=== PATIENT | female | born 1960 | race Caucasian/White ===

== ENCOUNTER 2017-01-31 14:34 | Inpatient (IN) | payer OTHER ==
--- NOTE | 2017-01-31 15:44 | ED ---
General Adult HPI - General Chief complaint: Psychiatric Symptoms Stated complaint: Mental Health Time Seen by Provider: 01/31/17 15:19 Source: patient, RN notes reviewed Mode of arrival: ambulatory Limitations: no limitations - History of Present Illness Initial comments: Patient is a 56-year-old female who presents emergency room today with a chief complaint of needing psychiatric evaluation. She does admit to positive suicide earlier today. She states that she did have a rope which was going to hang herself. She states her walked in and saw throat. Patient was met that she's had thoughts of hurting herself once in the past. States she currently does not see a therapist or counselor at this time. States she stopped her medications 2 days ago has not taken them over the last 2 days. She denies any homicidal thoughts or plans. Denies any visual or auditory hallucinations. Denies any other complaints or associated symptoms. Patient denies any recent fever, chills, shortness of breath, chest pain, back pain, abdominal pain, nausea or vomiting, numbness or tingling, dysuria or hematuria, constipation or diarrhea, headaches or visual changes, or any other complaints. - Related Data Home Medications Medication Instructions Recorded Confirmed Aspirin EC [Ecotrin Low Dose] 81 mg PO DAILY 01/31/17 01/31/17 Ibuprofen [Motrin] 200 - 400 mg PO Q6HR PRN 01/31/17 01/31/17 Morphine Sulfate ER [Ms Contin 30 mg PO Q12H 01/31/17 01/31/17 30Mg] Temazepam 30 mg PO HS 01/31/17 01/31/17 amLODIPine [Norvasc] 10 mg PO HS 01/31/17 01/31/17 Allergies Allergy/AdvReac Type Severity Reaction Status Date / Time No Known Allergies Allergy Verified 01/31/17 15:54 Review of Systems ROS Statement: Those systems with pertinent positive or pertinent negative responses have been documented in the HPI. ROS Other: All systems not noted in ROS Statement are negative. Past Medical History Past Medical History: Hypertension History of Any Multi-Drug Resistant Organisms: None Reported Past Surgical History: Appendectomy, Hernia Repair Past Psychological History: Anxiety, Depression Smoking Status: Current some day smoker Past Alcohol Use History: Rare Past Drug Use History: None Reported General Exam - General Exam Comments Initial Comments: General: The patient is awake and alert, in no distress, and does not appear acutely ill. Eye: Pupils are equal, round and reactive to light, extra-ocular movements are intact. No nystagmus. There is normal conjunctiva bilaterally. No signs of icterus. Ears, nose, mouth and throat: There are moist mucous membranes and no oral lesions. Neck: The neck is supple, there is no tenderness or JVD. Cardiovascular: There is a regular rate and rhythm. No murmur, rub or gallop is appreciated. Respiratory: Lungs are clear to auscultation, respirations are non-labored, breath sounds are equal. No wheezes, stridor, rales, or rhonchi. Musculoskeletal: Normal ROM, no tenderness. Strength 5/5. Sensation intact. Pulses equal bilaterally 2+. Neurological: A&O x 3. CN II-XII intact, There are no obvious motor or sensory deficits. Coordination appears grossly intact. Speech is normal. Skin: Skin is warm and dry and no rashes or lesions are noted. Psychiatric: Cooperative, appropriate mood & affect, normal judgment. Limitations: no limitations Course Vital Signs 01/31/17 15:08 Temperature 99.3 F Pulse Rate 83 Respiratory 20 Rate Blood Pressure 137/84 O2 Sat by Pulse 99 Oximetry Medical Decision Making - Medical Decision Making The patient seen here in the emergency room by [facility] and the recommended admission. Patient will be admitted she's willing to sign herself in. - Lab Data Lab Results 01/31/17 Range/Units 16:46 Urine Opiates Screen Detected H (NotDetected) Ur Oxycodone Screen Not Detected (NotDetected) Urine Methadone Screen Not Detected (NotDetected) Ur Propoxyphene Screen Not Detected (NotDetected) Ur Barbiturates Screen Not Detected (NotDetected) U Tricyclic Antidepress Not Detected (NotDetected) Ur Phencyclidine Scrn Not Detected (NotDetected) Ur Amphetamines Screen Not Detected (NotDetected) U Methamphetamines Scrn Not Detected (NotDetected) U Benzodiazepines Scrn Detected H (NotDetected) Urine Cocaine Screen Not Detected (NotDetected) U Marijuana (THC) Screen Not Detected (NotDetected) Disposition Clinical Impression: Suicidal ideation Disposition: ADMITTED IP TO THIS HOSP Condition: Stable Time of Disposition: 17:34
[2017-01-31] MEDS ORDERED: MAG HYDROX/AL HYDROX/SIMETH 30 ML CUP PO PRN (17:24)
[2017-01-31] MEDS ORDERED: MAGNESIUM HYDROXIDE 2,400 MG/10 ML CUP PO PRN (17:24)
[2017-01-31] MEDS: amLODIPine 10 MG TAB PO SCH (20:15)
[2017-01-31] MEDS ORDERED: traZODone HCL 100 MG TAB PO STA (20:29)
[2017-02-01 09:09] LABS: Basophils # (A) 0.1 k/uL (0-0.2); Basophils % (A) 1 %; CH 32.8; Eosinophils # (A) 0.1 k/uL (0-0.7); Eosinophils % (A) 1 %; HCT 48.5 % (34.0-46.0); HDW 2.33; HGB 15.9 gm/dL (11.4-16.0); Luc % (Auto) 2; Lymphocytes # (A) 1.4 k/uL (1.0-4.8); Lymphocytes % (A) 23 %; MCH 32.7 pg (25.0-35.0); MCHC 32.8 g/dL (31.0-37.0); MCV 99.8 fL (80.0-100.0); Mean Platelet Volume 6.7; Monocytes # (A) 0.2 k/uL (0-1.0); Monocytes % (A) 3 %; Neutrophils # (A) 4.3 k/uL (1.3-7.7); Neutrophils % (A) 71 %; RBC 4.87 m/uL (3.80-5.40); RDW 13.4 % (11.5-15.5); WBC 6.1 k/uL (3.8-10.6); WBC (Perox) 5.83
[2017-02-01] MEDS: ASPIRIN 81 MG PO SCH (09:26)
[2017-02-01 09:46] VITALS: BMI 16.2
[2017-02-01 10:00] LABS: ALT 22 U/L (9-52); AST 24 U/L (14-36); Alkaline Phosphatase 84 U/L (38-126); Anion Gap 12 mmol/L; Blood Urea Nitrogen 21 mg/dL (7-17); Calcium 9.8 mg/dL (8.4-10.2); Carbon Dioxide 21 mmol/L (22-30); Chloride 107 mmol/L (98-107); Glucose 208 mg/dL (74-99); Non-African American GFR(MDRD) >60 (>60 ml/min/1.73 sqM); Sodium 140 mmol/L (137-145); Total Bilirubin 0.5 mg/dL (0.2-1.3); Total Protein 7.4 g/dL (6.3-8.2)
[2017-02-01] MEDS: NICOTINE 7MG/24HR PATCH TRANSDERM PRN (13:04)
[2017-02-01] MEDS: LORazepam 1 MG TAB PO PRN ×2 (13:37→19:45)
--- NOTE | 2017-02-01 16:57 | P.HPIM ---
History of Present Illness H&P Date: 02/01/17 Chief Complaint: Depression with suicidal ideation. This is a history of physical and a 56-year-old white female who is very well- known to my practice who had has had significant issue with chronic opioid dependence. For the last several years, she's been slowly weaning down her morphine dosing. However, she states that, after spending some time with her sister, she decided to just stop completely her medication for pain. Withdrawal she became very frustrated and has had significant problems with mental stress. Her , who is also patient, brought her into the mental health unit for evaluation. She is seen day 1 of her admission. She states significant nausea due to withdrawal. She would actually like to stop taking morphine and just treat her symptomatology. Ativan was supposedly given to the patient which was summarily vomited. Review of Systems Constitutional: Denies chills, Denies fever Eyes: denies blurred vision, denies pain Ears, nose, mouth and throat: Denies headache, Denies sore throat Respiratory: Denies cough Gastrointestinal: Denies abdominal pain, Denies diarrhea, Denies nausea, Denies vomiting Genitourinary: Denies dysuria, Denies hematuria Integumentary: Denies pruritus, Denies rash Neurological: Denies numbness, Denies weakness Psychiatric: Reports depression, Reports suicidal ideation Past Medical History Past Medical History: Hypertension, Osteoarthritis (OA) Additional Past Medical History / Comment(s): migraines, sciatica,grinds teeth at night, depression/anxiety History of Any Multi-Drug Resistant Organisms: None Reported Past Surgical History: Appendectomy, Hernia Repair, Tonsillectomy Additional Past Surgical History / Comment(s): benign tumor removed rt breast, pain clinic injections Past Anesthesia/Blood Transfusion Reactions: Motion Sickness Additional Past Anesthesia/Blood Transfusion Reaction / Comment(s): clausterphobia Past Psychological History: Anxiety, Depression Smoking Status: Current every day smoker Past Alcohol Use History: Occasional Additional Past Alcohol Use History / Comment(s): started smoking at age 17 currently smokes 3 cig per day Additional Drug Use History / Comment(s): pt stated in herteens/20's "i did anything i could get my hands on" pt wouldnt elaborate on exact drugs. - Past Family History Father Family Medical History: Cancer, Coronary Artery Disease (CAD), CVA/TIA, Hyperlipidemia, Hypertension, Prostate Disorder Additional Family Medical History / Comment(s): prostate cancer, quad bypass Mother Family Medical History: CVA/TIA, Hyperlipidemia, Hypertension Medications and Allergies Home Medications Medication Instructions Recorded Confirmed Type Aspirin EC [Ecotrin Low Dose] 81 mg PO DAILY 01/31/17 01/31/17 History Ibuprofen [Motrin] 200 - 400 mg PO Q6HR PRN 01/31/17 01/31/17 History Morphine Sulfate ER [Ms Contin 30 mg PO Q12H 01/31/17 01/31/17 History 30Mg] RX: Temazepam 30 mg PO HS 01/31/17 01/31/17 History amLODIPine [Norvasc] 10 mg PO HS 01/31/17 01/31/17 History Allergies Allergy/AdvReac Type Severity Reaction Status Date / Time No Known Allergies Allergy Verified 01/31/17 15:54 Physical Exam Vitals: Vital Signs Temp Pulse Pulse Resp BP BP Pulse Ox 02/01/17 09:48 81 16 142/83 02/01/17 06:44 98.7 F 73 16 143/77 01/31/17 20:16 92 140/94 01/31/17 18:21 98.0 F 78 15 138/81 99 01/31/17 17:44 96.9 F L 70 18 134/81 98 Intake and Output 02/01/17 02/01/17 02/01/17 06:59 14:59 22:59 Other: Weight 39.009 kg Patient Weight 02/02/17 06:59 Weight 39.009 kg - Constitutional General appearance: thin - EENT Eyes: no abnormal pupil - Neck Neck: no lymphadenopathy - Respiratory Respiratory: bilateral: CTA - Cardiovascular Rhythm: regular Heart sounds: normal: S1, S2 - Gastrointestinal General gastrointestinal: soft, no tenderness - Integumentary Integumentary: no cellulitis - Neurologic Neurologic: CNII-XII intact Results CBC & Chem 7: 02/01/17 08:40 02/01/17 08:40 Labs: Abnormal Lab Results - Last 24 Hours (Table) 01/31/17 02/01/17 02/01/17 Range/Units 16:46 08:40 08:40 Hct 48.5 H (34.0-46.0) % Carbon Dioxide 21 L (22-30) mmol/L BUN 21 H (7-17) mg/dL Glucose 208 H (74-99) mg/dL Urine Opiates Screen Detected H (NotDetected) U Benzodiazepines Scrn Detected H (NotDetected) Assessment and Plan (1) Opiate withdrawal Status: Acute (2) Hypertension Status: Acute (3) Suicidal ideation Status: Acute Plan: Treat symptomatically for withdrawal. Start Zofran when necessary for nausea. Reconcile medications for hypertension. We'll continue to follow with psychiatry. See orders otherwise. Otherwise, she is a full code.
[2017-02-01] MEDS: ONDANSETRON 4 MG TAB PO PRN (17:41)
[2017-02-01] MEDS: LOPERAMIDE 2 MG CAP PO PRN (17:43)
[2017-02-01] MEDS: DICYCLOMINE 10 MG CAP PO PRN (19:42)
[2017-02-01] MEDS: cloNIDine HCL 0.1 MG TAB PO PRN (19:45)
[2017-02-01] MEDS: IBUPROFEN 600 MG TAB PO PRN (19:46)
[2017-02-01] MEDS: TEMAZEPAM 30 MG CAP PO SCH (21:17)
[2017-02-01] MEDS: amLODIPine 10 MG TAB PO SCH (21:17)
[2017-02-01] MEDS: MIRTAZAPINE 15 MG TAB PO SCH (21:17)
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
[2017-02-02] MEDS: NICOTINE 7MG/24HR PATCH TRANSDERM PRN (09:11)
[2017-02-02] MEDS: ASPIRIN 81 MG PO SCH (09:11)
[2017-02-02] MEDS: cloNIDine HCL 0.1 MG TAB PO PRN ×2 (09:15→14:41)
[2017-02-02] MEDS: LORazepam 1 MG TAB PO PRN ×2 (09:15→17:42)
[2017-02-02] MEDS: ONDANSETRON 4 MG TAB PO PRN ×2 (11:26→15:24)
[2017-02-02 14:14] LABS: Appearance,Urine Cloudy (Clear); Bacteria,Urine Rare /hpf; Bilirubin,Urine Negative (Negative); Glucose,Urine (UA) 2+ (Negative); Ketones,Urine Negative (Negative); Leukocyte Esterase,Urine Moderate (Negative); Mucus,Urine Rare /hpf; Nitrite,Urine Negative (Negative); Particle Count 9169; Protein,Urine Negative (Negative); RBC,Urine <1 /hpf (0-5); Squamous Epithelial Cell,Urine <1 /hpf (0-4); UA Billing (MACRO vs. MICRO) MICRO; Urobilinogen,Urine <2.0 mg/dL (<2.0); WBC,Urine 2 /hpf (0-5)
[2017-02-02] MEDS: IBUPROFEN 600 MG TAB PO PRN ×2 (14:41→20:30)
[2017-02-02] MEDS: DICYCLOMINE 10 MG CAP PO PRN (15:24)
[2017-02-02] MEDS: LOPERAMIDE 2 MG CAP PO PRN (17:45)
[2017-02-02] MEDS: TEMAZEPAM 30 MG CAP PO SCH (20:31)
[2017-02-02] MEDS: amLODIPine 10 MG TAB PO SCH (20:31)
[2017-02-02] MEDS: MIRTAZAPINE 15 MG TAB PO SCH (20:31)
--- NOTE | 2017-02-02 22:23 | P.PN ---
Progress Note - Text Progress Note Date: 02/02/17 Vital Signs Temp 99.3 F 02/02/17 07:08 Pulse 87 02/02/17 20:32 Resp 16 02/02/17 20:32 BP 114/72 02/02/17 20:32 Pulse Ox 99 01/31/17 18:21 Patient interviewed twice today, at bedside and on unit. Both times patient appeared ill. Patient is currently suffering from acute opiate withdrawal from MS-Contin. Patient was not aware for some reason that she had more medications than just clonidine ordered for said withdrawal and had not been asking for them. Patient states she severe cramps, diarrhea, and nausea at present. Patient escorted to medication window and RN summoned to get patient her PRN medications. Mental Status Exam: Appearance: alert, hygiene adequate, emaciated, appears frail, steady gait Behavior: psychomotor agitation+ no abnormal movements, fair eye contact Attitude: cooperative Speech: normal rate, rhythm, fluency, articulation; volume; and prosody; primary language: Bahamian Mood: dysphoric Affect: congruent, reactive Thought processes: linear, organized Thought content: patient does not appear to be responding to internal stimuli; patient denies auditory and visual hallucinations, no delusions appreciated Insight: poor to fair Judgment: poor Current Orders: Generic Name Dose Route Start Last Admin Trade Name Freq PRN Reason Stop Dose Admin Acetaminophen 650 mg 01/31/17 17:24 Tylenol Tab PO Q4HR PRN Mild Pain/Discomfort Al Hydroxide/Mg Hydroxide 30 ml 01/31/17 17:24 Maalox PO Q4HR PRN GI Upset Amlodipine Besylate 10 mg 01/31/17 21:00 02/02/17 20:31 Norvasc PO 10 mg HS DEBBIE Administration Aspirin 81 mg 02/01/17 09:00 02/02/17 09:11 Aspirin PO 81 mg DAILY DEBBIE Administration Clonidine 0.1 mg 02/01/17 17:58 02/02/17 14:41 Catapres PO 0.1 mg TID PRN Administration withdrawl Dicyclomine HCl 10 mg 02/01/17 17:17 02/02/17 15:24 Bentyl PO 10 mg QID PRN Administration GI Upset Ibuprofen 600 mg 02/01/17 17:18 02/02/17 20:30 Motrin PO 600 mg Q4HR PRN Administration Mild Pain Loperamide HCl 2 mg 02/01/17 17:21 02/02/17 17:45 Imodium PO 2 mg QID PRN Administration Diarrhea Lorazepam 1 mg 02/01/17 13:22 02/02/17 17:42 Ativan PO 1 mg TID PRN Administration Anxiety Magnesium Hydroxide 2,400 mg 01/31/17 17:24 Milk Of Magnesia PO DAILY PRN Constipation Mirtazapine 15 mg 02/01/17 21:00 02/02/17 20:31 Remeron PO 15 mg HS DEBBIE Administration Nicotine 1 patch 02/01/17 12:50 02/02/17 09:11 Habitrol 7mg/24hr Patch TRANSDERM 1 patch DAILY PRN Administration Nicotine Cravings Ondansetron HCl 4 mg 02/02/17 14:47 02/02/17 15:24 Zofran PO 4 mg Q4HR PRN Administration Nausea And Vomiting Temazepam 30 mg 02/01/17 21:00 02/02/17 20:31 Restoril PO 30 mg HS DEBBIE Administration
[2017-02-03] MEDS: IBUPROFEN 600 MG TAB PO PRN ×2 (03:03→12:08)
[2017-02-03] MEDS: LORazepam 1 MG TAB PO PRN ×2 (03:03→12:11)
[2017-02-03] MEDS: ASPIRIN 81 MG PO SCH (08:51)
[2017-02-03] MEDS: DICYCLOMINE 10 MG CAP PO PRN (12:07)
[2017-02-03] MEDS: LOPERAMIDE 2 MG CAP PO PRN (12:08)
[2017-02-03] MEDS: cloNIDine HCL 0.1 MG TAB PO PRN (12:09)
[2017-02-03] MEDS ORDERED: DICYCLOMINE 20 MG TAB PO PRN (17:30)
[2017-02-03] MEDS: cloNIDine HCL 0.1 MG TAB PO SCH ×2 (18:07→21:52)
[2017-02-03] MEDS: TEMAZEPAM 30 MG CAP PO SCH (21:52)
[2017-02-03] MEDS: MIRTAZAPINE 15 MG TAB PO SCH (21:52)
--- NOTE | 2017-02-03 21:52 | P.PN ---
Progress Note - Text Progress Note Date: 02/03/17 Vital Signs: Temp 98.0 F 02/03/17 20:40 Pulse 81 02/03/17 20:40 Resp 15 02/03/17 20:40 BP 106/69 02/03/17 20:40 Pulse Ox 99 01/31/17 18:21 Intake & Output 02/03/17 02/03/17 02/04/17 06:59 18:59 06:59 Weight 39.009 kg Interval History: Patient interviewed multiple time throughout the day. She continues to struggle with withdrawal from MS-Contin. This morning, she appeared ashen shepard and quite ill. Patient requested her Clonidine and Ativan be increased, both were. Patient also informed that Bentyl would be increased today and to make sure and request her Zofran for nausea. Patient continues to show signs of improvement each day. Mental Status Exam: Appearance: alert, hygiene adequate, emaciated, appears frail, steady gait Behavior: psychomotor agitation+ no abnormal movements, fair eye contact Attitude: cooperative Speech: normal rate, rhythm, fluency, articulation; volume; and prosody; primary language: Faroese Mood: dysphoric Affect: congruent, reactive Thought processes: linear, organized Thought content: patient does not appear to be responding to internal stimuli; patient denies auditory and visual hallucinations, no delusions appreciated Insight: poor to fair Judgment: poor Plan: multiple medication adjustments to supportive medications: * increase Bentyl to 20-mg PO QID * increase Clonidine to 0.1-mg QID * increase Ativan to 1-mg PO QID PRN * patient encouraged to continue attending groups to best of her ability (she attended several today) and to report to nursing staff if her symptoms significantly worsen Active Medications: Generic Name Dose Route Start Last Admin Trade Name Freq PRN Reason Stop Dose Admin Acetaminophen 650 mg 01/31/17 17:24 Tylenol Tab PO Q4HR PRN Mild Pain/Discomfort Al Hydroxide/Mg Hydroxide 30 ml 01/31/17 17:24 Maalox PO Q4HR PRN GI Upset Amlodipine Besylate 10 mg 01/31/17 21:00 02/02/17 20:31 Norvasc PO 10 mg HS DEBBIE Administration Aspirin 81 mg 02/01/17 09:00 02/03/17 08:51 Aspirin PO 81 mg DAILY DEBBIE Administration Clonidine 0.1 mg 02/03/17 18:00 02/03/17 18:07 Catapres PO 0.1 mg QID DEBBIE Administration Dicyclomine HCl 20 mg 02/03/17 17:30 Bentyl PO QID PRN Dyspepsia Ibuprofen 600 mg 02/01/17 17:18 02/03/17 12:08 Motrin PO 600 mg Q4HR PRN Administration Mild Pain Loperamide HCl 2 mg 02/01/17 17:21 02/03/17 12:08 Imodium PO 2 mg QID PRN Administration Diarrhea Lorazepam 1 mg 02/03/17 17:34 Ativan PO QID PRN Anxiety Magnesium Hydroxide 2,400 mg 01/31/17 17:24 Milk Of Magnesia PO DAILY PRN Constipation Mirtazapine 15 mg 02/01/17 21:00 02/02/17 20:31 Remeron PO 15 mg HS DEBBIE Administration Ondansetron HCl 4 mg 02/02/17 14:47 02/02/17 15:24 Zofran PO 4 mg Q4HR PRN Administration Nausea And Vomiting Temazepam 30 mg 02/01/17 21:00 02/02/17 20:31 Restoril PO 30 mg HS DEBBIE Administration
[2017-02-03] MEDS: amLODIPine 10 MG TAB PO SCH (21:54)
[2017-02-04] MEDS: IBUPROFEN 600 MG TAB PO PRN (02:34)
[2017-02-04] MEDS: LORazepam 1 MG TAB PO PRN ×2 (02:34→08:10)
[2017-02-04] MEDS: ONDANSETRON 4 MG TAB PO PRN ×3 (05:15→13:57)
[2017-02-04] MEDS: ACETAMINOPHEN TAB 325 MG TAB PO PRN ×3 (05:15→13:20)
[2017-02-04 06:48] VITALS: TEMP 97.6
[2017-02-04] MEDS: ASPIRIN 81 MG PO SCH (08:08)
[2017-02-04] MEDS: cloNIDine HCL 0.1 MG TAB PO SCH ×2 (08:09→13:16)
[2017-02-04 14:09] VITALS: BP 110/66; PULSE 73; RESP 20
--- NOTE | 2017-02-27 17:26 | P.DS ---
Providers Date of admission: 01/31/17 17:19 Expected date of discharge: 02/04/17 Attending physician: Jc Olmos DO Consults: 01/31/17 17:24 Consult Physician Routine Consulting Provider: Erik Sommer Consult Reason/Comments: H and P Do you want consulting provider notified?: Yes Primary care physician: Erik Sommer - Discharge Diagnosis(es) (1) Major depressive disorder, severe Status: Acute (2) Opiate withdrawal Status: Acute Hospital Course: HOSPITAL COURSE: * Legal status at discharge: Voluntary * Compliant with medications: Yes * Reported adverse side effects: No * Require restraints/seclusion: No * Emergency Medication administered: No * Attend group, recreational, activity therapies: Infrequently Patient is 56 year old female who presented to the ED with chief complaint of requesting a psychiatric evaluation after an interrupted suicide attempt when her stopped her from hanging herself. Patient reports that she has been taking opiates for years most recently MS-Contin. She reported being "fed up" with pain pills and discontinued MS-Contin with no taper. Patient then went into opiate withdrawal which coupled with other stressors in her life lead her to believe it was "time to check out." During hospital course , patient was treated symptomatically for opiate withdrawal and tolerated such well. She was started on Remeron for mood, sleep, appetite with no adverse or side effects. Patient had a positive family meeting with and discharged home back into his care. At time of discharge, patient denied SI/HI/AVH. MENTAL STATUS EXAM: Appearance: alert, well groomed, appears stated age, steady gait Behavior: no psychomotor agitation or psychomotor retardation, no abnormal movements, fair eye contact Attitude: cooperative Speech: normal rate, rhythm, fluency, articulation, volume, and prosody; primary language: Kinyarwanda Mood: Affect: congruent, reactive Thought processes: linear Thought content: patient does not appear to be responding to internal stimuli; patient denies auditory and visual hallucinations, no delusions appreciated Insight: fair Judgment: fair Cognitive: oriented to all 3 spheres, average intelligence Discharge Medication List Aspirin EC [Ecotrin Low Dose] 81 mg PO DAILY 01/31/17 [History] amLODIPine [Norvasc] 10 mg PO HS 01/31/17 [History] Mirtazapine [Remeron] 15 mg PO HS #14 tab 02/04/17 [Rx] Temazepam 30 mg PO HS #14 02/04/17 [Rx] Patient Condition at Discharge: Stable Plan - Discharge Summary Discharge Rx Participant: No New Discharge Prescriptions: New Mirtazapine [Remeron] 15 mg PO HS #14 tab Continue amLODIPine [Norvasc] 10 mg PO HS Aspirin EC [Ecotrin Low Dose] 81 mg PO DAILY Temazepam 30 mg PO HS #14 Discontinued Ibuprofen [Motrin] 200 - 400 mg PO Q6HR PRN PRN Reason: Pain Morphine Sulfate ER [Ms Contin 30Mg] 30 mg PO Q12H Discharge Medication List Aspirin EC [Ecotrin Low Dose] 81 mg PO DAILY 01/31/17 [History] amLODIPine [Norvasc] 10 mg PO HS 01/31/17 [History] Mirtazapine [Remeron] 15 mg PO HS #14 tab 02/04/17 [Rx] Temazepam 30 mg PO HS #14 02/04/17 [Rx] Follow up Appointment(s)/Referral(s): [facility] [Outside] - 02/07/17 1:00 pm (Gladis Carrasco please arrive 20 minutes early for paperwork) Erik Sommer MD [Primary Care Provider] - 1-2 days Patient Instructions/Handouts: Narcotic Abuse (DC), Depression (DC), Suicide Prevention for Adults (DC) Activity/Diet/Wound Care/Special Instructions: Activity and diet as tolerated. Avoid the use of street drugs and alcohol. Take all medications as prescribed. When you are in need of refills on your medications please contact your medical provider and/or outpatient psychiatrist to have this done. Please go to scheduled outpatient appointment for aftercare. If symptoms return or become worse call the crisis line at and/ or go to the nearest emergency room for an evaluation. Discharge Disposition: HOME SELF-CARE
== END 2017-02-04 14:28 | disposition home or self-care (01) | DRG 897 ==
LOC: EC 14:34 → 3MHU 17:19
PROVIDERS: ADMIT Psychiatry & Neurology Psychiatry; ATTEND Psychiatry & Neurology Psychiatry
DX: F11.23 Opioid dependence with withdrawal (principal); F32.2 Major depressive disorder, single episode, severe without psychotic features; F41.9 Anxiety disorder, unspecified; I10 Essential (primary) hypertension; G43.909 Migraine, unspecified, not intractable, without status migrainosus; M19.90 Unspecified osteoarthritis, unspecified site; F17.210 Nicotine dependence, cigarettes, uncomplicated; T14.91XA Suicide attempt, initial encounter; Z79.82 Long term (current) use of aspirin; Z79.899 Other long term (current) drug therapy; Z82.49 Family history of ischemic heart disease and other diseases of the circulatory system; X83.8XXA Intentional self-harm by other specified means, initial encounter; Y92.9 Unspecified place or not applicable
CPT/HCPCS: 80053; 80306; 81001; 82075; 84443; 85025; 99285

== ENCOUNTER 2017-03-17 09:49 | Inpatient (IN) | payer OTHER ==
[2017-03-17] MEDS ORDERED: SUCCINYLCHOLINE CHLORIDE VIAL 200 MG/10 ML VIAL IV STA (10:04)
[2017-03-17] MEDS ORDERED: MIDAZOLAM (PF) 1 MG/ML 5 ML VIAL IV STA (10:05)
[2017-03-17] MEDS ORDERED: GLUCAGON 1 MG/ML VIAL IVP STA (10:11)
[2017-03-17] MEDS: SODIUM CHLORIDE 0.9% 2,000 ML IV STA (10:19)
--- NOTE | 2017-03-17 10:19 | ED ---
General Adult HPI - General Chief complaint: Overdose Stated complaint: Poss Overdose Time Seen by Provider: 03/17/17 09:49 Source: EMS, RN notes reviewed Mode of arrival: EMS - History of Present Illness Initial comments: This is a 56-year-old female who presents emergency Department unresponsive. found her this morning unresponsive last time he saw her normal was last night. They did not give any past medical history to the paramedics. They were given some medication bottles that were empty but there were some loose pills that they also brought with him. Patient had 22 pills of Norvasc were found but there was a bottle was empty. This leaves a potential 48 that the patient could've taken. A bottle of Remeron was empty and it was only prescribed about 20 days ago. patient also had a empty bottle of Restoril which was prescribed about 30 days ago. Patient is unresponsive and unable to give any history no family is here at this time and no further history can be obtained. - Related Data Home Medications Medication Instructions Recorded Confirmed Aspirin EC [Ecotrin Low Dose] 81 mg PO DAILY 01/31/17 03/17/17 amLODIPine [Norvasc] 10 mg PO HS 01/31/17 03/17/17 Previous Rx's Medication Instructions Recorded Mirtazapine [Remeron] 15 mg PO HS #14 tab 02/04/17 Temazepam 30 mg PO HS #14 02/04/17 Allergies Allergy/AdvReac Type Severity Reaction Status Date / Time No Known Allergies Allergy Verified 03/17/17 10:04 Review of Systems ROS Statement: Those systems with pertinent positive or pertinent negative responses have been documented in the HPI. ROS Other: All systems not noted in ROS Statement are negative. Past Medical History Past Medical History: Hypertension, Osteoarthritis (OA) Additional Past Medical History / Comment(s): migraines, sciatica,grinds teeth at night, depression/anxiety History of Any Multi-Drug Resistant Organisms: None Reported Past Surgical History: Appendectomy, Hernia Repair, Tonsillectomy Additional Past Surgical History / Comment(s): benign tumor removed rt breast, pain clinic injections Past Anesthesia/Blood Transfusion Reactions: Motion Sickness Additional Past Anesthesia/Blood Transfusion Reaction / Comment(s): clausterphobia Past Psychological History: Anxiety, Depression Smoking Status: Current every day smoker Past Alcohol Use History: Occasional - Past Family History Father Family Medical History: Cancer, Coronary Artery Disease (CAD), CVA/TIA, Hyperlipidemia, Hypertension, Prostate Disorder Additional Family Medical History / Comment(s): prostate cancer, quad bypass Mother Family Medical History: CVA/TIA, Hyperlipidemia, Hypertension General Exam - General Exam Comments Initial Comments: GENERAL: Patient is well-developed and well-nourished. Patient is unresponsive but does move some painful stimuli ENT: Neck is soft and supple. No significant lymphadenopathy is noted. Oropharynx is clear. Moist mucous membranes. Neck has full range of motion without eliciting any pain. EYES: The sclera were anicteric and conjunctiva were pink and moist. Pupils were 3 mm bilaterally and unresponsive to light PULMONARY: Patient has some agonal breathing initially so I intubated the patient Good breath sounds bilaterally. No audible rales rhonchi or wheezing was noted. CARDIOVASCULAR: There is a regular rate and rhythm without any murmurs gallops or rubs. ABDOMEN: Soft and nontender with normal bowel sounds. Patient is very cachectic SKIN: Skin is clear with no lesions or rashes and otherwise unremarkable. NEUROLOGIC: Patient is unresponsive but does withdraw slightly to painful stimuli MUSCULOSKELETAL: Normal extremities with adequate strength and full range of motion. No lower extremity swelling or edema. PSYCHIATRIC: Unable to assess Course Vital Signs 03/17/17 03/17/17 03/17/17 09:52 10:04 10:08 Temperature 97.5 F L Pulse Rate 92 90 88 Respiratory 18 Rate Blood Pressure 68/47 O2 Sat by Pulse 91 L 100 96 Oximetry 03/17/17 03/17/17 03/17/17 10:15 10:27 10:39 Temperature Pulse Rate 76 82 80 Respiratory 18 Rate Blood Pressure 97/50 106/57 100/50 O2 Sat by Pulse 100 97 100 Oximetry 03/17/17 03/17/17 03/17/17 10:49 10:59 13:23 Temperature Pulse Rate 78 78 75 Respiratory 24 Rate Blood Pressure 98/55 97/56 92/46 O2 Sat by Pulse 100 100 100 Oximetry Procedures - Procedures Initial comment: I did have femoral artery puncture for blood because the nurses were unsuccessful getting blood. - Central Line Placement Right Femoral Consent Obtained: emergent situation Time Out Performed: Yes Patient Placed on Monitor/Pulse Ox: Yes Prep: mask, gown, gloves Central Line Prep: Chlorhexidine scrub Local Anesthesia Used: Lidocaine 1% Amount of Anesthesia Used (mls): 5 Ultrasound Used for Placement: No Central Line Lumen Inserted: triple Bloods Obtained for Lab: No Central Line Position: good blood return, all ports aspirated, flushed, capped, sutured in place with 2-0 silk, sutured in place with 3-0 nylon Dressing Applied: Tegaderm Patient Tolerated Procedure: well Complications: none - Intubation Time Out Performed: Yes Sedative: Versed Paralytic: Succinylcholine Laryngoscope: Roman Size: 3 ET Tube Size: 7.5 ET Tube Uncuffed: No Tube Secured Location: teeth Tube Placement Confirmation: visualized tube passing through cords, equal breath sounds bilaterally, no breath sounds over epigastrium, confirmation by capnometry Patient Tolerated Procedure: well Intubation Complications: none Medical Decision Making - Medical Decision Making EKG shows normal sinus rhythm at 92 bpm ME interval is 136 dresses 74 QT interval 370 QTC is 457. Patient's EKG shows no ST segment elevation or depression or T-wave abdomen is noted. Patient was intubated immediately upon arrival because she was having some agonal respirations and obtunded. Patient is central line placed as well. Patient was given glucagon and calcium chloride as well as a cousin quite drip and then I started an insulin drip after speaking with the dining car steward on 3 separate occasions. Patient also had Levophed started because of her low blood pressure. Patient also received a 2-1/2 L bolus soon as she arrived. Patient' s computed tomography scan of the head shows no acute abnormality. Patient's chest x-ray shows no acute abnormality. ET tube in good placement. I spoke with Dr. Vasquez as he agreed to take the patient in ICU he came down and saw the patient personally. - Lab Data Result diagrams: 03/17/17 10:30 03/17/17 10:30 Lab Results 03/17/17 03/17/17 03/17/17 Range/Units 10:30 10:30 10:30 WBC 18.6 H (3.8-10.6) k/uL RBC 3.54 L (3.80-5.40) m/uL Hgb 11.4 D (11.4-16.0) gm/dL Hct 35.8 (34.0-46.0) % MCV 101.1 H (80.0-100.0) fL MCH 32.3 (25.0-35.0) pg MCHC 31.9 (31.0-37.0) g/dL RDW 14.0 (11.5-15.5) % Plt Count 279 (150-450) k/uL Neutrophils % 84 % Lymphocytes % 12 % Monocytes % 3 % Eosinophils % 0 % Basophils % 0 % Neutrophils # 15.6 H (1.3-7.7) k/uL Lymphocytes # 2.3 (1.0-4.8) k/uL Monocytes # 0.6 (0-1.0) k/uL Eosinophils # 0.0 (0-0.7) k/uL Basophils # 0.0 (0-0.2) k/uL Macrocytosis Slight PT (9.0-12.0) sec INR (<1.2) Sample Site ABG pH (7.35-7.45) ABG pCO2 (35-45) mmHg ABG pO2 (83-108) mmHg ABG HCO3 (21-25) mmol/L ABG Total CO2 (19-24) mmol/L ABG O2 Saturation (94-97) % ABG Base Excess mmol/L FiO2 % Sodium 139 (137-145) mmol/L Potassium 3.1 L (3.5-5.1) mmol/L Chloride 111 H (98-107) mmol/L Carbon Dioxide 13 L (22-30) mmol/L Anion Gap 15 mmol/L BUN 32 H (7-17) mg/dL Creatinine 1.73 H (0.52-1.04) mg/dL Est GFR (MDRD) Af Amer 37 (>60 ml/min/1.73 sqM) Est GFR (MDRD) Non-Af 30 (>60 ml/min/1.73 sqM) Glucose 210 H (74-99) mg/dL POC Glucose (mg/dL) (75-99) mg/dL POC Glu Adjunct In[employer] ID Plasma Lactic Acid Art (0.7-2.0) mmol/L Calcium 11.0 H (8.4-10.2) mg/dL Total Bilirubin 0.4 (0.2-1.3) mg/dL AST 148 H (14-36) U/L ALT 69 H (9-52) U/L Alkaline Phosphatase 57 (38-126) U/L Total Creatine Kinase 7130 H (30-135) U/L CK-MB (CK-2) 36.3 H* (0.0-2.4) ng/mL CK-MB (CK-2) Rel Index Troponin I 0.039 H* (0.000-0.034) ng/mL Total Protein 5.1 L (6.3-8.2) g/dL Albumin 2.5 L (3.5-5.0) g/dL Urine HCG, Qual (Not Detectd) Salicylates <1.0 mg/dL Urine Opiates Screen (NotDetected) Ur Oxycodone Screen (NotDetected) Urine Methadone Screen (NotDetected) Ur Propoxyphene Screen (NotDetected) Acetaminophen <10.0 ug/mL Ur Barbiturates Screen (NotDetected) U Tricyclic Antidepress (NotDetected) Ur Phencyclidine Scrn (NotDetected) Ur Amphetamines Screen (NotDetected) U Methamphetamines Scrn (NotDetected) U Benzodiazepines Scrn (NotDetected) Urine Cocaine Screen (NotDetected) U Marijuana (THC) Screen (NotDetected) Serum Alcohol <10 mg/dL 03/17/17 03/17/17 03/17/17 Range/Units 10:30 10:30 10:30 WBC (3.8-10.6) k/uL RBC (3.80-5.40) m/uL Hgb (11.4-16.0) gm/dL Hct (34.0-46.0) % MCV (80.0-100.0) fL MCH (25.0-35.0) pg MCHC (31.0-37.0) g/dL RDW (11.5-15.5) % Plt Count (150-450) k/uL Neutrophils % % Lymphocytes % % Monocytes % % Eosinophils % % Basophils % % Neutrophils # (1.3-7.7) k/uL Lymphocytes # (1.0-4.8) k/uL Monocytes # (0-1.0) k/uL Eosinophils # (0-0.7) k/uL Basophils # (0-0.2) k/uL Macrocytosis PT (9.0-12.0) sec INR (<1.2) Sample Site ABG pH (7.35-7.45) ABG pCO2 (35-45) mmHg ABG pO2 (83-108) mmHg ABG HCO3 (21-25) mmol/L ABG Total CO2 (19-24) mmol/L ABG O2 Saturation (94-97) % ABG Base Excess mmol/L FiO2 % Sodium (137-145) mmol/L Potassium (3.5-5.1) mmol/L Chloride (98-107) mmol/L Carbon Dioxide (22-30) mmol/L Anion Gap mmol/L BUN (7-17) mg/dL Creatinine (0.52-1.04) mg/dL Est GFR (MDRD) Af Amer (>60 ml/min/1.73 sqM) Est GFR (MDRD) Non-Af (>60 ml/min/1.73 sqM) Glucose (74-99) mg/dL POC Glucose (mg/dL) (75-99) mg/dL POC Glu Adjunct Instructor [employer] ID Plasma Lactic Acid Art 7.3 H* (0.7-2.0) mmol/L Calcium (8.4-10.2) mg/dL Total Bilirubin (0.2-1.3) mg/dL AST (14-36) U/L ALT (9-52) U/L Alkaline Phosphatase (38-126) U/L Total Creatine Kinase (30-135) U/L CK-MB (CK-2) (0.0-2.4) ng/mL CK-MB (CK-2) Rel Index Troponin I (0.000-0.034) ng/mL Total Protein (6.3-8.2) g/dL Albumin (3.5-5.0) g/dL Urine HCG, Qual Not Detected (Not Detectd) Salicylates mg/dL Urine Opiates Screen Detected H (NotDetected) Ur Oxycodone Screen Not Detected (NotDetected) Urine Methadone Screen Not Detected (NotDetected) Ur Propoxyphene Screen Not Detected (NotDetected) Acetaminophen ug/mL Ur Barbiturates Screen Not Detected (NotDetected) U Tricyclic Antidepress Detected H (NotDetected) Ur Phencyclidine Scrn Not Detected (NotDetected) Ur Amphetamines Screen Not Detected (NotDetected) U Methamphetamines Scrn Not Detected (NotDetected) U Benzodiazepines Scrn Detected H (NotDetected) Urine Cocaine Screen Not Detected (NotDetected) U Marijuana (THC) Screen Not Detected (NotDetected) Serum Alcohol mg/dL 03/17/17 03/17/17 03/17/17 Range/Units 10:30 10:44 11:37 WBC (3.8-10.6) k/uL RBC (3.80-5.40) m/uL Hgb (11.4-16.0) gm/dL Hct (34.0-46.0) % MCV (80.0-100.0) fL MCH (25.0-35.0) pg MCHC (31.0-37.0) g/dL RDW (11.5-15.5) % Plt Count (150-450) k/uL Neutrophils % % Lymphocytes % % Monocytes % % Eosinophils % % Basophils % % Neutrophils # (1.3-7.7) k/uL Lymphocytes # (1.0-4.8) k/uL Monocytes # (0-1.0) k/uL Eosinophils # (0-0.7) k/uL Basophils # (0-0.2) k/uL Macrocytosis PT 12.0 (9.0-12.0) sec INR 1.2 H (<1.2) Sample Site rfem ABG pH 7.31 L (7.35-7.45) ABG pCO2 27 L (35-45) mmHg ABG pO2 325 H (83-108) mmHg ABG HCO3 14 L (21-25) mmol/L ABG Total CO2 14 L (19-24) mmol/L ABG O2 Saturation 100.0 H (94-97) % ABG Base Excess -12.0 mmol/L FiO2 100 % Sodium (137-145) mmol/L Potassium (3.5-5.1) mmol/L Chloride (98-107) mmol/L Carbon Dioxide (22-30) mmol/L Anion Gap mmol/L BUN (7-17) mg/dL Creatinine (0.52-1.04) mg/dL Est GFR (MDRD) Af Amer (>60 ml/min/1.73 sqM) Est GFR (MDRD) Non-Af (>60 ml/min/1.73 sqM) Glucose (74-99) mg/dL POC Glucose (mg/dL) 258 H (75-99) mg/dL POC Glu Adjunct Instructor [employer] ID Joselito Cruz Plasma Lactic Acid Art (0.7-2.0) mmol/L Calcium (8.4-10.2) mg/dL Total Bilirubin (0.2-1.3) mg/dL AST (14-36) U/L ALT (9-52) U/L Alkaline Phosphatase (38-126) U/L Total Creatine Kinase (30-135) U/L CK-MB (CK-2) (0.0-2.4) ng/mL CK-MB (CK-2) Rel Index Troponin I (0.000-0.034) ng/mL Total Protein (6.3-8.2) g/dL Albumin (3.5-5.0) g/dL Urine HCG, Qual (Not Detectd) Salicylates mg/dL Urine Opiates Screen (NotDetected) Ur Oxycodone Screen (NotDetected) Urine Methadone Screen (NotDetected) Ur Propoxyphene Screen (NotDetected) Acetaminophen ug/mL Ur Barbiturates Screen (NotDetected) U Tricyclic Antidepress (NotDetected) Ur Phencyclidine Scrn (NotDetected) Ur Amphetamines Screen (NotDetected) U Methamphetamines Scrn (NotDetected) U Benzodiazepines Scrn (NotDetected) Urine Cocaine Screen (NotDetected) U Marijuana (THC) Screen (NotDetected) Serum Alcohol mg/dL 03/17/17 Range/Units 13:04 WBC (3.8-10.6) k/uL RBC (3.80-5.40) m/uL Hgb (11.4-16.0) gm/dL Hct (34.0-46.0) % MCV (80.0-100.0) fL MCH (25.0-35.0) pg MCHC (31.0-37.0) g/dL RDW (11.5-15.5) % Plt Count (150-450) k/uL Neutrophils % % Lymphocytes % % Monocytes % % Eosinophils % % Basophils % % Neutrophils # (1.3-7.7) k/uL Lymphocytes # (1.0-4.8) k/uL Monocytes # (0-1.0) k/uL Eosinophils # (0-0.7) k/uL Basophils # (0-0.2) k/uL Macrocytosis PT (9.0-12.0) sec INR (<1.2) Sample Site ABG pH (7.35-7.45) ABG pCO2 (35-45) mmHg ABG pO2 (83-108) mmHg ABG HCO3 (21-25) mmol/L ABG Total CO2 (19-24) mmol/L ABG O2 Saturation (94-97) % ABG Base Excess mmol/L FiO2 % Sodium (137-145) mmol/L Potassium (3.5-5.1) mmol/L Chloride (98-107) mmol/L Carbon Dioxide (22-30) mmol/L Anion Gap mmol/L BUN (7-17) mg/dL Creatinine (0.52-1.04) mg/dL Est GFR (MDRD) Af Amer (>60 ml/min/1.73 sqM) Est GFR (MDRD) Non-Af (>60 ml/min/1.73 sqM) Glucose (74-99) mg/dL POC Glucose (mg/dL) 269 H (75-99) mg/dL POC Glu Adjunct Instructor [employer] ID Joselito Cruz Plasma Lactic Acid Art (0.7-2.0) mmol/L Calcium (8.4-10.2) mg/dL Total Bilirubin (0.2-1.3) mg/dL AST (14-36) U/L ALT (9-52) U/L Alkaline Phosphatase (38-126) U/L Total Creatine Kinase (30-135) U/L CK-MB (CK-2) (0.0-2.4) ng/mL CK-MB (CK-2) Rel Index Troponin I (0.000-0.034) ng/mL Total Protein (6.3-8.2) g/dL Albumin (3.5-5.0) g/dL Urine HCG, Qual (Not Detectd) Salicylates mg/dL Urine Opiates Screen (NotDetected) Ur Oxycodone Screen (NotDetected) Urine Methadone Screen (NotDetected) Ur Propoxyphene Screen (NotDetected) Acetaminophen ug/mL Ur Barbiturates Screen (NotDetected) U Tricyclic Antidepress (NotDetected) Ur Phencyclidine Scrn (NotDetected) Ur Amphetamines Screen (NotDetected) U Methamphetamines Scrn (NotDetected) U Benzodiazepines Scrn (NotDetected) Urine Cocaine Screen (NotDetected) U Marijuana (THC) Screen (NotDetected) Serum Alcohol mg/dL Critical Care Time Critical Care Time: Yes Total Critical Care Time: 85 Disposition Clinical Impression: Calcium channel amadou overdose, Benzodiazepine overdose, Unresponsive, Rhabdomyolysis, Renal insufficiency Disposition: ADMITTED IP TO THIS HOSP Referrals: Erik Sommer MD [Primary Care Provider] - 1-2 days Time of Disposition: 13:34
[2017-03-17] MEDS ORDERED: NOREPINEPHRIN 4 MG-0.9% NS PMX 4 MG/250 ML ML IV ONE (10:24)
[2017-03-17] MEDS: CALCIUM CHLORIDE 100 MG/ML 10 ML SYRINGE IVP STA ×2 (10:25→11:34)
[2017-03-17] MEDS ORDERED: EPINEPHrine 10 ML SYRINGE (0.1 MG/ML) IV STA (10:37)
[2017-03-17] MEDS ORDERED: EPINEPHrine 1 MG/ML 1 ML AMP IV STA (10:37)
[2017-03-17 10:53] LABS: ABG HCO3 14 mmol/L (21-25); ABG PCO2 27 mmHg (35-45); ABG PH 7.31 (7.35-7.45); ABG PO2 325 mmHg (83-108); ABG TCO2 14 mmol/L (19-24)
[2017-03-17 11:02] LABS: Basophils % (A) 0 %; CH 32.5; CHCM 32.3; Eosinophils % (A) 0 %; HCT 35.8 % (34.0-46.0); HDW 2.32; Luc # (Auto) 0.11; Luc % (Auto) 1; Lymphocytes # (A) 2.3 k/uL (1.0-4.8); Lymphocytes % (A) 12 %; MCH 32.3 pg (25.0-35.0); MCHC 31.9 g/dL (31.0-37.0); MCV 101.1 fL (80.0-100.0); Macrocytosis Slight; Mean Platelet Volume 7.6; Monocytes # (A) 0.6 k/uL (0-1.0); Monocytes % (A) 3 %; Neutrophils # (A) 15.6 k/uL (1.3-7.7); Neutrophils % (A) 84 %; RBC 3.54 m/uL (3.80-5.40); WBC 18.6 k/uL (3.8-10.6); WBC (Perox) 19.76
--- NOTE | 2017-03-17 11:02 | XR ---
EXAMINATION TYPE: XR chest 1V portable DATE OF EXAM: 03/17/2017 COMPARISON: NONE INDICATION: Unresponsive TECHNIQUE: Single frontal view of the chest is obtained. FINDINGS: The heart size is normal. The pulmonary vasculature is normal. The lungs are clear. Bilateral nipple shadows are evident. An endotracheal tube is present with the tip above the tomi. Nasogastric tube transverses the thora x with tip in the proximal left upper quadrant of the abdomen. This could be advanced slightly. EKG d idn't overlie the chest. IMPRESSION: 1. No acute pulmonary process. 2. Lines and catheters discussed above. Nasogastric tube could be advanced approximately 4 cm
[2017-03-17 11:04] LABS: HGB 11.4 gm/dL (11.4-16.0)
[2017-03-17 11:07] LABS: ALT 69 U/L (9-52); AST 148 U/L (14-36); Acetaminophen <10.0 ug/mL; Alcohol <10 mg/dL; Alkaline Phosphatase 57 U/L (38-126); Anion Gap 15 mmol/L; Blood Urea Nitrogen 32 mg/dL (7-17); Carbon Dioxide 13 mmol/L (22-30); Chloride 111 mmol/L (98-107); Glucose 210 mg/dL (74-99); Non-African American GFR(MDRD) 30 (>60 ml/min/1.73 sqM); Potassium 3.1 mmol/L (3.5-5.1); Salicylate <1.0 mg/dL; Sodium 139 mmol/L (137-145); Total Bilirubin 0.4 mg/dL (0.2-1.3); Total Protein 5.1 g/dL (6.3-8.2)
[2017-03-17] MEDS ORDERED: INSULIN REGULAR 100 UNIT/ML VIAL IV STA (11:14)
[2017-03-17] MEDS ORDERED: INSULIN REGULAR 100 UNIT in SODIUM CHLORIDE 0.9% 100 ML IV ONE ×2 (11:14→15:00)
[2017-03-17 11:29] LABS: INR 1.2 (<1.2)
[2017-03-17 11:40] LABS: Glucose,Whole Blood 258 mg/dL (75-99)
[2017-03-17] MEDS ORDERED: CALCIUM CHLORIDE 100 MG/ML 10 ML VIAL IVPB STA (11:48)
[2017-03-17] MEDS ORDERED: DEXTROSE 5% IN WATER 1,000 ML IV ONE ×2 (11:58→12:15)
[2017-03-17 12:02] LABS: Creatine Kinase MB 36.3 ng/mL (0.0-2.4); Troponin I 0.039 ng/mL (0.000-0.034)
--- NOTE | 2017-03-17 12:26 | P.CNPUL ---
History of Present Illness Consult date: 03/17/17 Requesting physician: Erik Sommer Reason for consult: other (Ventilator/critical care management) Chief complaint: Overdose History of present illness: This is a 56-year-old female patient who follows with Dr. Sommer as her primary care physician. She has a history of hypertension, osteoarthritis, migraines, anxiety/depression. She also has chronic and ongoing tobacco dependence. She was brought into the emergency room this morning by EMS. Her found her unresponsive she is felt to maybe having taken the overdose of Norvasc, Remeron and Restoril. She was unresponsive and unable to protect her airway. She was subsequently intubated and placed on mechanical ventilator. We are seeing her in consultation in the emergency room. Current vent settings are assist control of 24, tidal volume 350, FiO2 60% and a PEEP of 5. Arterial blood gases revealed a PaO2 of 325, pCO2 27, pH 7.3 100% FiO2. Chest x-ray reveals no acute pulmonary process. White count 18.6, hemoglobin 11.4, potassium 3.1, chloride 111, bicarb 13, creatinine 1.73. Her lactic acid level is 7.3. AST 148 ALT 69. Urine drug screen is positive for opiates, tricyclic antidepressants and benzodiazepines. She is being treated with fluids, epinephrine, norepinephrine currently at 60 mcg/kg/m. She had received calcium. The plan is for high dose insulin, insulin drip currently at 41 units per hour. Of note, the patient was here one month ago for major depressive disorder and opiate withdrawal. Review of Systems ROS unobtainable: due to endotracheal tube Past Medical History Past Medical History: Hypertension, Osteoarthritis (OA) Additional Past Medical History / Comment(s): migraines, sciatica,grinds teeth at night, depression/anxiety History of Any Multi-Drug Resistant Organisms: None Reported Past Surgical History: Appendectomy, Hernia Repair, Tonsillectomy Additional Past Surgical History / Comment(s): benign tumor removed rt breast, pain clinic injections Past Anesthesia/Blood Transfusion Reactions: Motion Sickness Additional Past Anesthesia/Blood Transfusion Reaction / Comment(s): clausterphobia Past Psychological History: Anxiety, Depression Smoking Status: Current every day smoker Past Alcohol Use History: Occasional - Past Family History Father Family Medical History: Cancer, Coronary Artery Disease (CAD), CVA/TIA, Hyperlipidemia, Hypertension, Prostate Disorder Additional Family Medical History / Comment(s): prostate cancer, quad bypass Mother Family Medical History: CVA/TIA, Hyperlipidemia, Hypertension Medications and Allergies Home Medications Medication Instructions Recorded Confirmed Type Aspirin EC [Ecotrin Low Dose] 81 mg PO DAILY 01/31/17 03/17/17 History amLODIPine [Norvasc] 10 mg PO HS 01/31/17 03/17/17 History Mirtazapine [Remeron] 15 mg PO HS #14 tab 02/04/17 03/17/17 Rx Temazepam 30 mg PO HS #14 02/04/17 03/17/17 Rx Allergies Allergy/AdvReac Type Severity Reaction Status Date / Time No Known Allergies Allergy Verified 03/17/17 10:04 Physical Exam Vitals: Vital Signs Temp Pulse Resp BP Pulse Ox 03/17/17 10:59 78 97/56 100 03/17/17 10:49 78 98/55 100 03/17/17 10:39 80 100/50 100 03/17/17 10:27 82 106/57 97 03/17/17 10:15 90 96 03/17/17 10:08 88 96 03/17/17 10:04 90 100 03/17/17 09:52 97.5 F L 92 18 68/47 91 L Intake and Output 03/16/17 03/17/17 03/17/17 22:59 06:59 14:59 Output Total 100 Balance -100 Output: Urine 100 Uretheral (Salas) 100 Other: Weight 40.823 kg Patient Weight 03/18/17 06:59 Weight 40.823 kg GENERAL EXAM: Intubated, sedated. HEAD: Normocephalic. EYES: Sluggish reaction of pupils, equal size. NOSE: Clear with pink turbinates. THROAT: Oral endotracheal and gastric tube secured in place. NECK: No masses, no JVD. CHEST: No chest wall deformity. LUNGS: Equal air entry with no crackles, wheeze, rhonchi or dullness. CVS: S1 and S2 normal with no audible murmur, regular rhythm. ABDOMEN: No hepatosplenomegaly, normal bowel sounds, no guarding or rigidity. SPINE: No scoliosis or deformity SKIN: No rashes EXTREMITIES: There is no peripheral edema. No clubbing, no cyanosis. Peripheral pulses are intact. Results - Laboratory Findings CBC and BMP: 03/17/17 10:30 11/16/17 10:30 ABG ABG pH 7.31 (7.35-7.45) L 03/17/17 10:44 ABG pCO2 27 mmHg (35-45) L 03/17/17 10:44 ABG pO2 325 mmHg (83-108) H 03/17/17 10:44 ABG O2 Saturation 100.0 % (94-97) H 03/17/17 10:44 PT/INR, D-dimer PT 12.0 sec (9.0-12.0) 03/17/17 10:30 INR 1.2 (<1.2) H 03/17/17 10:30 Abnormal lab findings: Abnormal Labs 03/17/17 03/17/17 03/17/17 10:30 10:30 10:30 WBC 18.6 H RBC 3.54 L MCV 101.1 H Neutrophils # 15.6 H INR ABG pH ABG pCO2 ABG pO2 ABG HCO3 ABG Total CO2 ABG O2 Saturation Potassium 3.1 L Chloride 111 H Carbon Dioxide 13 L BUN 32 H Creatinine 1.73 H Glucose 210 H POC Glucose (mg/dL) Plasma Lactic Acid Art Calcium 11.0 H AST 148 H ALT 69 H Total Creatine Kinase 7130 H CK-MB (CK-2) 36.3 H* Troponin I 0.039 H* Total Protein 5.1 L Albumin 2.5 L Urine Opiates Screen U Tricyclic Antidepress U Benzodiazepines Scrn 03/17/17 03/17/17 03/17/17 10:30 10:30 10:30 WBC RBC MCV Neutrophils # INR 1.2 H ABG pH ABG pCO2 ABG pO2 ABG HCO3 ABG Total CO2 ABG O2 Saturation Potassium Chloride Carbon Dioxide BUN Creatinine Glucose POC Glucose (mg/dL) Plasma Lactic Acid Art 7.3 H* Calcium AST ALT Total Creatine Kinase CK-MB (CK-2) Troponin I Total Protein Albumin Urine Opiates Screen Detected H U Tricyclic Antidepress Detected H U Benzodiazepines Scrn Detected H 03/17/17 03/17/17 10:44 11:37 WBC RBC MCV Neutrophils # INR ABG pH 7.31 L ABG pCO2 27 L ABG pO2 325 H ABG HCO3 14 L ABG Total CO2 14 L ABG O2 Saturation 100.0 H Potassium Chloride Carbon Dioxide BUN Creatinine Glucose POC Glucose (mg/dL) 258 H Plasma Lactic Acid Art Calcium AST ALT Total Creatine Kinase CK-MB (CK-2) Troponin I Total Protein Albumin Urine Opiates Screen U Tricyclic Antidepress U Benzodiazepines Scrn - Diagnostic Findings Chest x-ray: image reviewed Assessment and Plan Assessment: Pression: #1 Multidrug overdose of Remeron, Restoril and Norvasc. #2 Drug screen positive for opiates, tricyclic antidepressants, benzodiazepines. #3 Acute respiratory failure secondary to above requiring intubation mechanical ventilatory support. #4 History of anxiety/depression with recent admission for depressive disorder and opiate withdrawal. #5 Hypertension. Plan: The patient was seen and evaluated by Dr. Vasquez. Her chest x-ray and labs were reviewed. The patient will be transferred to the intensive care unit for continued monitoring. High Dose insulin protocol. Continue to monitor her heart rate and blood pressure carefully. Place on DuoNeb inhalations every 4 hours. We will continue to follow and make further recommendations based on her clinical status. Critical care time 42 minutes. I, the cosigning physician, have performed a history and physical examination on the patient. Lung sounds are clear. Continue mechanical ventilation for now. Monitor her closely in the intensive care unit. I have discussed the assessment and plan of care with my nurse practitioner, Heather Gifford. I attest the above documented note as dictated by her. Time with Patient: Greater than 30
[2017-03-17] MEDS ORDERED: NOREPINEPHRIN 16 MG-0.9%NS PMX 16 MG/250 ML ML IV ONE (12:50)
[2017-03-17 13:17] LABS: Glucose,Whole Blood 269 mg/dL (75-99)
[2017-03-17] MEDS ORDERED: CALCIUM CHLORIDE IV STA (13:20)
[2017-03-17] MEDS ORDERED: SODIUM CHLORIDE 0.9% IV STA (13:20)
[2017-03-17] MEDS ORDERED: NALOXONE 0.4 MG/ML 1 ML VIAL IV PRN (13:35)
--- NOTE | 2017-03-17 13:35 | CT ---
EXAMINATION TYPE: CT brain wo con DATE OF EXAM: 03/17/2017 COMPARISON: 10/01/2008 HISTORY: overdose CT DLP: 1186 mGycm. Automated Exposure Control for Dose Reduction was Utilized. TECHNIQUE: CT scan of the head is performed without contrast. FINDINGS: There is no acute intracranial hemorrhage, mass effect, or midline shift identified. The ventricles and sulci are within normal limits in size. The globes are intact. Moderate mucosal thic kening is seen within the ethmoid sinuses and within the posterior nasopharynx. Remaining paranasal s inuses and mastoid air cells are well aerated. There is partial visualization of a nasogastric tube. Prominent perivascular spaces are noted at the level of the inferior basal ganglia on the right on im age 22 and the left on image 21. IMPRESSION: No acute intracranial hemorrhage, mass effect, or midline shift is seen.
[2017-03-17 14:17] LABS: Glucose,Whole Blood 195 mg/dL (75-99)
[2017-03-17] MEDS ORDERED: SODIUM CHLORIDE 0.9% IV ONE (14:20)
[2017-03-17] MEDS ORDERED: CALCIUM CHLORIDE IV ONE (14:20)
[2017-03-17] MEDS: INSULIN REGULAR 100 UNIT in SODIUM CHLORIDE 0.9% 100 ML IV SCH ×4 (15:00→22:21)
[2017-03-17] MEDS ORDERED: PROPOFOL 1,000 MG/100 ML VIAL IV ONE (15:01)
[2017-03-17 15:09] LABS: Glucose,Whole Blood 142 mg/dL (75-99)
[2017-03-17] MEDS ORDERED: POTASSIUM CHLORIDE 20 MEQ in WATER FOR INJECTION 1 100ML.BAG IVPB ONE (15:15)
[2017-03-17 15:38] LABS: Glucose,Whole Blood 112 mg/dL (75-99)
[2017-03-17] MEDS: LACTATED RINGERS 1,000 ML IV SCH ×9 (16:00→21:26)
[2017-03-17 16:09] LABS: Glucose,Whole Blood 106 mg/dL (75-99)
[2017-03-17] MEDS: IPRATROPIUM-ALBUTEROL 3 ML NEB INHALATION SCH ×3 (16:32→23:07)
[2017-03-17 16:38] LABS: Glucose,Whole Blood 71 mg/dL (75-99)
[2017-03-17] MEDS: PROPOFOL 1,000 MG/100 ML VIAL IV SCH (16:56)
[2017-03-17] MEDS ORDERED: LACTATED RINGERS 1,000 ML IV SCH ×2 (17:00→21:15)
[2017-03-17 17:09] LABS: Glucose,Whole Blood 157 mg/dL (75-99)
--- NOTE | 2017-03-17 17:14 | P.HPIM ---
History of Present Illness 56-year-old female was found unresponsive brought to ER with suspicion of or gross on multiple medications including Norvasc, mirtazapine, Restoril with urine drug screen positive for opiates tricyclic antidepressants and benzodiazepines patient is found to have empty bottles next to her patient did not undergo card pulmonary resuscitation patient never had any car to pulmonary arrest patient is found to be unresponsive hypothermic hypotensive patient was subsequently intubated was transferred to ICU patient is presently on high-dose of norepinephrine insulin because of calcium channel amadou overdose, patient is presently getting lactated Ringer's since her lactic acid is elevated also which had to D5 half-normal saline and patient is getting D5 water as well although will be fluid resuscitated with normal saline boluses apart from D5 half-normal saline at 100 mL per hour patient urine output is significantly marginal are significantly low probably due to acute blood necrosis from hypotension and elevated lactic acid is due to her tissue hypoperfusion from hypotension. Patient is presently on propofol drip as well intubated. Patient appears to have intentional overdose and was trying to commit suicide. Patient has normal creatinine in the past 0.9. Brain CT and chest x-ray did not show any significant abnormality Review of Systems Unable to obtain due to her clinical condition Past Medical History Past Medical History: Hypertension, Osteoarthritis (OA) Additional Past Medical History / Comment(s): Pt recently admitted to [facility] on with major depression disorder/opiate withdrawal, interrupted suicide attemp (hanging), migraines, low back and cervical pain, sciatica at times, grinds teeth at night. History of Any Multi-Drug Resistant Organisms: None Reported Past Surgical History: Appendectomy, Hernia Repair, Tonsillectomy Additional Past Surgical History / Comment(s): benign tumor removed rt breast, pain clinic injections, abdominal hernia Past Anesthesia/Blood Transfusion Reactions: Motion Sickness Additional Past Anesthesia/Blood Transfusion Reaction / Comment(s): clausterphobia Smoking Status: Current every day smoker - Past Family History Father Family Medical History: Cancer, Coronary Artery Disease (CAD), CVA/TIA, Hyperlipidemia, Hypertension, Prostate Disorder Additional Family Medical History / Comment(s): prostate cancer, quad bypass Mother Family Medical History: CVA/TIA, Hyperlipidemia, Hypertension Medications and Allergies Home Medications Medication Instructions Recorded Confirmed Type Aspirin EC [Ecotrin Low Dose] 81 mg PO DAILY 01/31/17 03/17/17 History amLODIPine [Norvasc] 10 mg PO HS 01/31/17 03/17/17 History Mirtazapine [Remeron] 15 mg PO HS #14 tab 02/04/17 03/17/17 Rx Temazepam 30 mg PO HS #14 02/04/17 03/17/17 Rx Allergies Allergy/AdvReac Type Severity Reaction Status Date / Time No Known Allergies Allergy Verified 03/17/17 10:04 Physical Exam Vitals: Vital Signs Temp Pulse Resp BP Pulse Ox 03/17/17 17:04 91 03/17/17 16:57 88 03/17/17 15:48 35 H 03/17/17 15:30 93.5 F L 74 29 H 96/50 100 03/17/17 15:00 93.6 F L 73 30 H 97/51 100 03/17/17 14:30 74 28 H 119/69 100 03/17/17 14:15 75 03/17/17 13:48 74 16 84/56 100 03/17/17 13:23 75 24 92/46 100 03/17/17 10:59 78 97/56 100 03/17/17 10:49 78 98/55 100 03/17/17 10:39 80 100/50 100 03/17/17 10:27 82 106/57 97 03/17/17 10:15 76 18 97/50 100 03/17/17 10:08 88 96 03/17/17 10:04 90 100 03/17/17 09:52 97.5 F L 92 18 68/47 91 L Intake and Output 03/17/17 03/17/17 03/17/17 06:59 14:59 22:59 Intake Total 241 Output Total 100 0 Balance -100 241 Intake: IV 241 Calcium Chloride 800 mg 100 In Sodium Chloride 0.9% 100 ml @ 100 mls/hr IV ONCE ONE Rx#:[id number] Dextrose 5% in Water 1, 100 000 ml @ 100 mls/hr IV . Q10H ONE Rx#:[id number] Insulin Regular 100 unit 41 In Sodium Chloride 0.9% 100 ml @ 41 UNIT/HR 41.41 mls/hr IV .Q2H27M ONE Rx #:[id number] Output: Urine 100 0 Uretheral (Salas) 100 Other: Voiding Method Indwelling Catheter Weight 40.823 kg Patient Weight 03/18/17 06:59 Weight 40.823 kg PHYSICAL EXAMINATION: GENERAL: Intubated sedated HEENT: Pupils are round and equally reacting to light. EOMI. No scleral icterus. No conjunctival pallor. Normocephalic, atraumatic. No pharyngeal erythema. No thyromegaly. CARDIOVASCULAR: S1 and S2 present. No murmurs, rubs, or gallops. PULMONARY: Chest is clear to auscultation, no wheezing or crackles. ABDOMEN: Soft, nontender, nondistended, normoactive bowel sounds. No palpable organomegaly. MUSCULOSKELETAL: No joint swelling or deformity. EXTREMITIES: No cyanosis, clubbing, or pedal edema. NEUROLOGICAL: Unable to perform neurological exam SKIN: No rashes. Results CBC & Chem 7: 03/17/17 10:30 03/17/17 10:30 Labs: Abnormal Lab Results - Last 24 Hours (Table) 03/17/17 03/17/17 03/17/17 Range/Units 10:30 10:30 10:30 WBC 18.6 H (3.8-10.6) k/uL RBC 3.54 L (3.80-5.40) m/uL MCV 101.1 H (80.0-100.0) fL Neutrophils # 15.6 H (1.3-7.7) k/uL INR (<1.2) ABG pH (7.35-7.45) ABG pCO2 (35-45) mmHg ABG pO2 (83-108) mmHg ABG HCO3 (21-25) mmol/L ABG Total CO2 (19-24) mmol/L ABG O2 Saturation (94-97) % Potassium 3.1 L (3.5-5.1) mmol/L Chloride 111 H (98-107) mmol/L Carbon Dioxide 13 L (22-30) mmol/L BUN 32 H (7-17) mg/dL Creatinine 1.73 H (0.52-1.04) mg/dL Glucose 210 H (74-99) mg/dL POC Glucose (mg/dL) (75-99) mg/dL Plasma Lactic Acid Art (0.7-2.0) mmol/L Calcium 11.0 H (8.4-10.2) mg/dL AST 148 H (14-36) U/L ALT 69 H (9-52) U/L Total Creatine Kinase 7130 H (30-135) U/L CK-MB (CK-2) 36.3 H* (0.0-2.4) ng/mL Troponin I 0.039 H* (0.000-0.034) ng/mL Total Protein 5.1 L (6.3-8.2) g/dL Albumin 2.5 L (3.5-5.0) g/dL Urine Opiates Screen (NotDetected) U Tricyclic Antidepress (NotDetected) U Benzodiazepines Scrn (NotDetected) 03/17/17 03/17/17 03/17/17 Range/Units 10:30 10:30 10:30 WBC (3.8-10.6) k/uL RBC (3.80-5.40) m/uL MCV (80.0-100.0) fL Neutrophils # (1.3-7.7) k/uL INR 1.2 H (<1.2) ABG pH (7.35-7.45) ABG pCO2 (35-45) mmHg ABG pO2 (83-108) mmHg ABG HCO3 (21-25) mmol/L ABG Total CO2 (19-24) mmol/L ABG O2 Saturation (94-97) % Potassium (3.5-5.1) mmol/L Chloride (98-107) mmol/L Carbon Dioxide (22-30) mmol/L BUN (7-17) mg/dL Creatinine (0.52-1.04) mg/dL Glucose (74-99) mg/dL POC Glucose (mg/dL) (75-99) mg/dL Plasma Lactic Acid Art 7.3 H* (0.7-2.0) mmol/L Calcium (8.4-10.2) mg/dL AST (14-36) U/L ALT (9-52) U/L Total Creatine Kinase (30-135) U/L CK-MB (CK-2) (0.0-2.4) ng/mL Troponin I (0.000-0.034) ng/mL Total Protein (6.3-8.2) g/dL Albumin (3.5-5.0) g/dL Urine Opiates Screen Detected H (NotDetected) U Tricyclic Antidepress Detected H (NotDetected) U Benzodiazepines Scrn Detected H (NotDetected) 03/17/17 03/17/17 03/17/17 Range/Units 10:44 11:37 13:04 WBC (3.8-10.6) k/uL RBC (3.80-5.40) m/uL MCV (80.0-100.0) fL Neutrophils # (1.3-7.7) k/uL INR (<1.2) ABG pH 7.31 L (7.35-7.45) ABG pCO2 27 L (35-45) mmHg ABG pO2 325 H (83-108) mmHg ABG HCO3 14 L (21-25) mmol/L ABG Total CO2 14 L (19-24) mmol/L ABG O2 Saturation 100.0 H (94-97) % Potassium (3.5-5.1) mmol/L Chloride (98-107) mmol/L Carbon Dioxide (22-30) mmol/L BUN (7-17) mg/dL Creatinine (0.52-1.04) mg/dL Glucose (74-99) mg/dL POC Glucose (mg/dL) 258 H 269 H (75-99) mg/dL Plasma Lactic Acid Art (0.7-2.0) mmol/L Calcium (8.4-10.2) mg/dL AST (14-36) U/L ALT (9-52) U/L Total Creatine Kinase (30-135) U/L CK-MB (CK-2) (0.0-2.4) ng/mL Troponin I (0.000-0.034) ng/mL Total Protein (6.3-8.2) g/dL Albumin (3.5-5.0) g/dL Urine Opiates Screen (NotDetected) U Tricyclic Antidepress (NotDetected) U Benzodiazepines Scrn (NotDetected) 03/17/17 03/17/17 03/17/17 Range/Units 14:15 14:30 15:07 WBC (3.8-10.6) k/uL RBC (3.80-5.40) m/uL MCV (80.0-100.0) fL Neutrophils # (1.3-7.7) k/uL INR (<1.2) ABG pH (7.35-7.45) ABG pCO2 (35-45) mmHg ABG pO2 (83-108) mmHg ABG HCO3 (21-25) mmol/L ABG Total CO2 (19-24) mmol/L ABG O2 Saturation (94-97) % Potassium (3.5-5.1) mmol/L Chloride (98-107) mmol/L Carbon Dioxide (22-30) mmol/L BUN (7-17) mg/dL Creatinine (0.52-1.04) mg/dL Glucose (74-99) mg/dL POC Glucose (mg/dL) 195 H 142 H (75-99) mg/dL Plasma Lactic Acid Art 10.2 H* (0.7-2.0) mmol/L Calcium (8.4-10.2) mg/dL AST (14-36) U/L ALT (9-52) U/L Total Creatine Kinase (30-135) U/L CK-MB (CK-2) (0.0-2.4) ng/mL Troponin I (0.000-0.034) ng/mL Total Protein (6.3-8.2) g/dL Albumin (3.5-5.0) g/dL Urine Opiates Screen (NotDetected) U Tricyclic Antidepress (NotDetected) U Benzodiazepines Scrn (NotDetected) 03/17/17 03/17/17 03/17/17 Range/Units 15:35 16:06 16:37 WBC (3.8-10.6) k/uL RBC (3.80-5.40) m/uL MCV (80.0-100.0) fL Neutrophils # (1.3-7.7) k/uL INR (<1.2) ABG pH (7.35-7.45) ABG pCO2 (35-45) mmHg ABG pO2 (83-108) mmHg ABG HCO3 (21-25) mmol/L ABG Total CO2 (19-24) mmol/L ABG O2 Saturation (94-97) % Potassium (3.5-5.1) mmol/L Chloride (98-107) mmol/L Carbon Dioxide (22-30) mmol/L BUN (7-17) mg/dL Creatinine (0.52-1.04) mg/dL Glucose (74-99) mg/dL POC Glucose (mg/dL) 112 H 106 H 71 L (75-99) mg/dL Plasma Lactic Acid Art (0.7-2.0) mmol/L Calcium (8.4-10.2) mg/dL AST (14-36) U/L ALT (9-52) U/L Total Creatine Kinase (30-135) U/L CK-MB (CK-2) (0.0-2.4) ng/mL Troponin I (0.000-0.034) ng/mL Total Protein (6.3-8.2) g/dL Albumin (3.5-5.0) g/dL Urine Opiates Screen (NotDetected) U Tricyclic Antidepress (NotDetected) U Benzodiazepines Scrn (NotDetected) Thrombosis Risk Factor Assmnt - Choose All That Apply Any of the Below Risk Factors Present?: Yes Each Factor Represents 1 point: Age 41-60 years, Medical pt on bed rest Other Risk Factors: Yes Each Risk Factor Represents 2 Points: Patient confined to bed Other congenital or acquired thrombophilia - If yes, enter type in comment: No Thrombosis Risk Factor Assessment Total Risk Factor Score: 4 Thrombosis Risk Factor Assessment Level: Moderate Risk Assessment and Plan Plan: #1 acute respiratory failure: Ventilator dependence secondary to multiple drug overdose as mentioned above patient does have calcium channel overdose. #2 suicide attempt and drug overdose #3 acute renal failure along with anuria possibility of acute blood necrosis from severe hypotension from drug overdose #4 hypothymia patient is on Shaneka hugger, hypothymia secondary to hypoperfusion from calcium channel amadou overdose. #5 shock: Secondary to drug overdose, fluid resuscitation as mentioned above. #6 lactic acidosis secondary to tissue hypoperfusion from hypotension, as mentioned above lactated Ringer's will be discontinued and patient will be fluid resuscitated with IV normal saline since her chloride is high we will use D5 half-normal saline as maintenance fluid which also helps her hyperglycemia from IV insulin she is receiving for calcium channel amadou overdose #7 depression #8 leukocytosis reactive without signs or symptoms of infection #9 metabolic acidosis due to lactic acidosis from hypoperfusion #10 elevated liver enzymes and troponin secondary to hypoperfusion injury to liver and cardiac muscle
[2017-03-17] MEDS: DEXTROSE 10% IN WATER 500 ML in EMPTY BAG 1 BAG IV SCH ×2 (18:01→21:34)
[2017-03-17 18:13] LABS: Glucose,Whole Blood 67 mg/dL (75-99)
[2017-03-17] MEDS: NOREPINEPHRIN 16 MG-0.9%NS PMX 16 MG/250 ML ML IV SCH (18:20)
[2017-03-17 18:25] LABS: Basophils # (A) 0.1 k/uL (0-0.2); Basophils % (A) 0 %; CH 31.8; CHCM 30.8; Eosinophils # (A) 0.1 k/uL (0-0.7); Eosinophils % (A) 0 %; HDW 2.43; HGB 11.8 gm/dL (11.4-16.0); Hypochromasia Slight; Luc # (Auto) 0.12; Luc % (Auto) 1; Lymphocytes # (A) 1.3 k/uL (1.0-4.8); Lymphocytes % (A) 7 %; MCHC 31.8 g/dL (31.0-37.0); MCV 103.7 fL (80.0-100.0); Macrocytosis Slight; Mean Platelet Volume 7.3; Monocytes # (A) 0.7 k/uL (0-1.0); Monocytes % (A) 4 %; Neutrophils # (A) 16.1 k/uL (1.3-7.7); Neutrophils % (A) 88 %; RBC 3.57 m/uL (3.80-5.40); RDW 13.9 % (11.5-15.5); WBC 18.3 k/uL (3.8-10.6)
[2017-03-17 18:33] LABS: Calcium 11.1 mg/dL (8.4-10.2); Total Bilirubin 0.5 mg/dL (0.2-1.3); Total Protein 5.2 g/dL (6.3-8.2)
[2017-03-17 18:48] LABS: Glucose,Whole Blood 64 mg/dL (75-99)
[2017-03-17 18:55] LABS: Appearance,Urine Turbid (Clear); Bacteria,Urine Few /hpf; Bilirubin,Urine Negative (Negative); Glucose,Urine (UA) 1+ (Negative); Ketones,Urine 1+ (Negative); Leukocyte Esterase,Urine Small (Negative); Mucus,Urine Rare /hpf; Nitrite,Urine Negative (Negative); PH, Urine 5.5 (5.0-8.0); Particle Count 90734; Protein,Urine 2+ (Negative); RBC,Urine 2 /hpf (0-5); Specific Gravity,Urine 1.021 (1.001-1.035); Squamous Epithelial Cell,Urine 1 /hpf (0-4); UA Billing (MACRO vs. MICRO) MICRO; WBC,Urine 9 /hpf (0-5)
[2017-03-17 19:13] LABS: Glucose,Whole Blood 127 mg/dL (75-99)
[2017-03-17 19:35] LABS: Glucose,Whole Blood 143 mg/dL (75-99)
[2017-03-17 20:17] LABS: Glucose,Whole Blood 102 mg/dL (75-99)
[2017-03-17] MEDS ORDERED: DEXTROSE 10 % IN WATER 250 ML IV STA (20:25)
[2017-03-17 20:30] LABS: Glucose,Whole Blood 88 mg/dL (75-99)
[2017-03-17] MEDS ORDERED: DEXTROSE 50%-WATER 50 ML SYRINGE IVP STA ×2 (20:30→22:34)
[2017-03-17 21:12] LABS: Glucose,Whole Blood 169 mg/dL (75-99)
[2017-03-17] MEDS: CHLORHEXIDINE GLUCONATE 15 ML CUP MUCOUS MEM SCH (21:32)
[2017-03-17 21:33] LABS: Glucose,Whole Blood 151 mg/dL (75-99)
[2017-03-17 22:06] LABS: Glucose,Whole Blood 130 mg/dL (75-99)
[2017-03-17 22:20] LABS: Magnesium 1.3 mg/dL (1.6-2.3)
[2017-03-17 22:22] LABS: Potassium 2.9 mmol/L (3.5-5.1)
[2017-03-17 22:31] LABS: Glucose,Whole Blood 113 mg/dL (75-99)
[2017-03-17 23:12] LABS: Glucose,Whole Blood 83 mg/dL (75-99)
[2017-03-17] MEDS ORDERED: DEXTROSE IV ONE ×2 (23:15)
[2017-03-17] MEDS ORDERED: WATER IV ONE ×2 (23:15)
[2017-03-17 23:29] LABS: Glucose,Whole Blood 206 mg/dL (75-99)
[2017-03-18] MEDS: MAGNESIUM SULFATE-D5W PMX 1 GM in DEXTROSE/WATER 1 100ML.BAG IVPB SCH ×3 (00:04→02:06)
[2017-03-18 00:05] LABS: Glucose,Whole Blood 140 mg/dL (75-99)
[2017-03-18 00:32] LABS: Glucose,Whole Blood 144 mg/dL (75-99)
[2017-03-18] MEDS: PROPOFOL 1,000 MG/100 ML VIAL IV SCH (00:44)
[2017-03-18 00:58] LABS: Glucose,Whole Blood 149 mg/dL (75-99)
[2017-03-18] MEDS: INSULIN REGULAR 100 UNIT in SODIUM CHLORIDE 0.9% 100 ML IV SCH ×4 (01:05→08:05)
[2017-03-18 01:31] LABS: Glucose,Whole Blood 157 mg/dL (75-99)
[2017-03-18 02:12] LABS: Glucose,Whole Blood 158 mg/dL (75-99)
[2017-03-18 02:32] LABS: Glucose,Whole Blood 173 mg/dL (75-99)
[2017-03-18 03:09] LABS: Glucose,Whole Blood 178 mg/dL (75-99)
[2017-03-18] MEDS: IPRATROPIUM-ALBUTEROL 3 ML NEB INHALATION SCH ×2 (03:09→07:29)
[2017-03-18] MEDS: NOREPINEPHRIN 16 MG-0.9%NS PMX 16 MG/250 ML ML IV SCH (03:23)
[2017-03-18 03:31] LABS: Glucose,Whole Blood 149 mg/dL (75-99)
[2017-03-18] MEDS ORDERED: WATER IV ONE ×4 (04:00→08:30)
[2017-03-18] MEDS ORDERED: DEXTROSE IV ONE ×4 (04:00→08:30)
[2017-03-18 04:11] LABS: Basophils # (A) 0.1 k/uL (0-0.2); Basophils % (A) 0 %; CH 32.4; CHCM 32.4; Eosinophils % (A) 0 %; HCT 35.1 % (34.0-46.0); HDW 2.44; HGB 11.2 gm/dL (11.4-16.0); Luc # (Auto) 0.17; Luc % (Auto) 1; Lymphocytes # (A) 1.5 k/uL (1.0-4.8); Lymphocytes % (A) 7 %; MCH 32.1 pg (25.0-35.0); MCHC 31.9 g/dL (31.0-37.0); MCV 100.4 fL (80.0-100.0); Mean Platelet Volume 7.6; Monocytes # (A) 1.2 k/uL (0-1.0); Monocytes % (A) 5 %; Neutrophils # (A) 19.8 k/uL (1.3-7.7); Neutrophils % (A) 87 %; RBC 3.49 m/uL (3.80-5.40); RDW 14.1 % (11.5-15.5); WBC 22.8 k/uL (3.8-10.6); WBC (Perox) 24.23
[2017-03-18 04:21] LABS: Glucose,Whole Blood 144 mg/dL (75-99)
[2017-03-18 04:23] LABS: INR 1.1 (<1.2); Prothrombin Time 10.6 sec (9.0-12.0)
[2017-03-18 04:25] LABS: Calcium 9.9 mg/dL (8.4-10.2); Magnesium 2.4 mg/dL (1.6-2.3); Phosphorus 4.9 mg/dL (2.5-4.5); Potassium 3.3 mmol/L (3.5-5.1); Total Bilirubin 0.2 mg/dL (0.2-1.3); Total Protein 4.9 g/dL (6.3-8.2)
[2017-03-18 04:32] LABS: Partial Thromboplastin Time 21.2 sec (22.0-30.0)
[2017-03-18 04:42] LABS: Glucose,Whole Blood 123 mg/dL (75-99)
[2017-03-18 05:12] LABS: Glucose,Whole Blood 126 mg/dL (75-99)
[2017-03-18 05:19] LABS: ABG Base Excess -9.7 mmol/L; ABG HCO3 16 mmol/L (21-25); ABG PCO2 41 mmHg (35-45); ABG PH 7.23 (7.35-7.45); ABG PO2 80 mmHg (83-108); ABG TCO2 18 mmol/L (19-24)
[2017-03-18 05:43] LABS: Glucose,Whole Blood 117 mg/dL (75-99)
[2017-03-18 06:05] LABS: Glucose,Whole Blood 97 mg/dL (75-99)
[2017-03-18] MEDS ORDERED: DEXTROSE 50%-WATER 50 ML SYRINGE IVP STA (06:17)
[2017-03-18 06:34] LABS: Glucose,Whole Blood 194 mg/dL (75-99)
[2017-03-18 07:16] LABS: Glucose,Whole Blood 147 mg/dL (75-99)
--- NOTE | 2017-03-18 07:42 | P.PN ---
Subjective Progress Note Date: 03/18/17 Principal diagnosis: This is a continue present 56-year-old white female essentially admitted for overdose of multidrug. The patient is ventilated and seemingly comfortable. She is on multiple pressors and restaurants. No response to pain no purposeful movement at this point. 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 Objective - Vital Signs Vital signs: Vital Signs Temp 98.3 F 03/18/17 04:00 Pulse 85 03/18/17 07:29 Resp 30 H 03/18/17 06:00 BP 84/51 03/18/17 06:00 Pulse Ox 92 L 03/18/17 06:00 Intake & Output 03/17/17 03/18/17 03/18/17 18:59 06:59 18:59 Intake Total 3082.2 4093.452 Output Total 575 790 Balance 2507.2 3303.452 Weight 40.823 kg 49 kg Intake: IV 2973 3119 Calcium Chloride 800 mg 200 In Sodium Chloride 0.9% 100 ml @ 100 mls/hr IV ONCE ONE Rx#:[id number] Dextrose 10% in Water 500 1050 ml Dextrose 50%-Water Syringe 150 ml In Empty Bag 1 bag @ 150 mls/hr IV .Q4H20M [facility] Rx#: [id number] Dextrose 10% in Water 500 400 700 ml In Empty Bag 1 bag @ 150 mls/hr IV .Q3H20M [facility] Rx#:[id number] Dextrose 5% in Water 1, 250 0 000 ml @ 100 mls/hr IV . Q10H ONE Rx#:[id number] Insulin Regular 100 unit 123 369 In Sodium Chloride 0.9% 100 ml @ 41 UNIT/HR 41.41 mls/hr IV .Q2H27M [facility] Rx #:[id number] Lactated Ringers 1,000 ml 600 @ 50 mls/hr IV .Q20H [facility] Rx#:[id number] Lactated Ringers 1,000 ml 2000 @ 999 mls/hr IV .Q1H1M [facility] Rx#:[id number] Magnesium Sulfate-D5w Pmx 400 1 gm In Dextrose/Water 1 100ml.bag @ 100 mls/hr IVPB Q1H [facility] Rx#: [id number] Intake, IV Titration 109.2 974.452 Amount Insulin Regular 100 unit 109.2 404.910 In Sodium Chloride 0.9% 100 ml @ 41 UNIT/HR 41.41 mls/hr IV .Q2H27M [facility] Rx #:[id number] Norepinephrin 16 mg-0.9% 272.031 Ns Pmx 16 mg In 250 ml @ Titrate IV .Q0M [facility] Rx#: [id number] Norepinephrin 4 mg-0.9% 250 Ns Pmx 4 mg In 250 ml @ Titrate IV .Q0M [facility] Rx#: [id number] Propofol 1,000 mg In 100 47.511 ml @ Titrate IV .Q0M [facility] Rx#:[id number] Output: Gastric Drainage 450 Urine 125 90 Uretheral ([place]) 100 Emesis 700 Other: Voiding Method Indwelling Catheter Indwelling Catheter ABP, PAP, CO, CI - Last Documented Arterial Blood Pressure 76/57 - Constitutional General appearance: Present: thin - EENT Eyes: Absent: abnormal pupil - Neck Neck: Absent: lymphadenopathy - Respiratory Respiratory: bilateral: diminished - Cardiovascular Rhythm: regular Heart sounds: normal: S1, S2 - Gastrointestinal General gastrointestinal: Present: soft. Absent: tenderness - Labs CBC & Chem 7: 03/18/17 04:00 03/18/17 04:00 Labs: Abnormal Lab Results - Last 24 Hours (Table) 03/17/17 03/17/17 03/17/17 Range/Units 10:30 10:30 10:30 WBC 18.6 H (3.8-10.6) k/uL RBC 3.54 L (3.80-5.40) m/uL Hgb (11.4-16.0) gm/dL MCV 101.1 H (80.0-100.0) fL Neutrophils # 15.6 H (1.3-7.7) k/uL Monocytes # (0-1.0) k/uL INR (<1.2) APTT (22.0-30.0) sec ABG pH (7.35-7.45) ABG pCO2 (35-45) mmHg ABG pO2 (83-108) mmHg ABG HCO3 (21-25) mmol/L ABG Total CO2 (19-24) mmol/L ABG O2 Saturation (94-97) % ABG Lactic Acid (0.5-1.6) mmol/L Sodium (137-145) mmol/L Potassium 3.1 L (3.5-5.1) mmol/L Chloride 111 H (98-107) mmol/L Carbon Dioxide 13 L (22-30) mmol/L BUN 32 H (7-17) mg/dL Creatinine 1.73 H (0.52-1.04) mg/dL Glucose 210 H (74-99) mg/dL POC Glucose (mg/dL) (75-99) mg/dL Plasma Lactic Acid Art (0.7-2.0) mmol/L Calcium 11.0 H (8.4-10.2) mg/dL Ionized Calcium Joseph (4.5-5.3) mg/dL Phosphorus (2.5-4.5) mg/dL Magnesium (1.6-2.3) mg/dL AST 148 H (14-36) U/L ALT 69 H (9-52) U/L Total Creatine Kinase 7130 H (30-135) U/L CK-MB (CK-2) 36.3 H* (0.0-2.4) ng/mL Troponin I 0.039 H* (0.000-0.034) ng/mL Total Protein 5.1 L (6.3-8.2) g/dL Albumin 2.5 L (3.5-5.0) g/dL Urine Appearance (Clear) Urine Protein (Negative) Urine Glucose (UA) (Negative) Urine Ketones (Negative) Urine Blood (Negative) Ur Leukocyte Esterase (Negative) Urine WBC (0-5) /hpf Urine WBC Clumps (None) /hpf Urine Bacteria (None) /hpf Hyaline Casts (0-2) /lpf Urine Mucus (None) /hpf Urine Yeast (Budding) (None) /hpf Urine Opiates Screen (NotDetected) U Tricyclic Antidepress (NotDetected) U Benzodiazepines Scrn (NotDetected) 03/17/17 03/17/17 03/17/17 Range/Units 10:30 10:30 10:30 WBC (3.8-10.6) k/uL RBC (3.80-5.40) m/uL Hgb (11.4-16.0) gm/dL MCV (80.0-100.0) fL Neutrophils # (1.3-7.7) k/uL Monocytes # (0-1.0) k/uL INR 1.2 H (<1.2) APTT (22.0-30.0) sec ABG pH (7.35-7.45) ABG pCO2 (35-45) mmHg ABG pO2 (83-108) mmHg ABG HCO3 (21-25) mmol/L ABG Total CO2 (19-24) mmol/L ABG O2 Saturation (94-97) % ABG Lactic Acid (0.5-1.6) mmol/L Sodium (137-145) mmol/L Potassium (3.5-5.1) mmol/L Chloride (98-107) mmol/L Carbon Dioxide (22-30) mmol/L BUN (7-17) mg/dL Creatinine (0.52-1.04) mg/dL Glucose (74-99) mg/dL POC Glucose (mg/dL) (75-99) mg/dL Plasma Lactic Acid Art 7.3 H* (0.7-2.0) mmol/L Calcium (8.4-10.2) mg/dL Ionized Calcium Joseph (4.5-5.3) mg/dL Phosphorus (2.5-4.5) mg/dL Magnesium (1.6-2.3) mg/dL AST (14-36) U/L ALT (9-52) U/L Total Creatine Kinase (30-135) U/L CK-MB (CK-2) (0.0-2.4) ng/mL Troponin I (0.000-0.034) ng/mL Total Protein (6.3-8.2) g/dL Albumin (3.5-5.0) g/dL Urine Appearance (Clear) Urine Protein (Negative) Urine Glucose (UA) (Negative) Urine Ketones (Negative) Urine Blood (Negative) Ur Leukocyte Esterase (Negative) Urine WBC (0-5) /hpf Urine WBC Clumps (None) /hpf Urine Bacteria (None) /hpf Hyaline Casts (0-2) /lpf Urine Mucus (None) /hpf Urine Yeast (Budding) (None) /hpf Urine Opiates Screen Detected H (NotDetected) U Tricyclic Antidepress Detected H (NotDetected) U Benzodiazepines Scrn Detected H (NotDetected) 03/17/17 03/17/17 03/17/17 Range/Units 10:44 11:37 13:04 WBC (3.8-10.6) k/uL RBC (3.80-5.40) m/uL Hgb (11.4-16.0) gm/dL MCV (80.0-100.0) fL Neutrophils # (1.3-7.7) k/uL Monocytes # (0-1.0) k/uL INR (<1.2) APTT (22.0-30.0) sec ABG pH 7.31 L (7.35-7.45) ABG pCO2 27 L (35-45) mmHg ABG pO2 325 H (83-108) mmHg ABG HCO3 14 L (21-25) mmol/L ABG Total CO2 14 L (19-24) mmol/L ABG O2 Saturation 100.0 H (94-97) % ABG Lactic Acid (0.5-1.6) mmol/L Sodium (137-145) mmol/L Potassium (3.5-5.1) mmol/L Chloride (98-107) mmol/L Carbon Dioxide (22-30) mmol/L BUN (7-17) mg/dL Creatinine (0.52-1.04) mg/dL Glucose (74-99) mg/dL POC Glucose (mg/dL) 258 H 269 H (75-99) mg/dL Plasma Lactic Acid Art (0.7-2.0) mmol/L Calcium (8.4-10.2) mg/dL Ionized Calcium Joseph (4.5-5.3) mg/dL Phosphorus (2.5-4.5) mg/dL Magnesium (1.6-2.3) mg/dL AST (14-36) U/L ALT (9-52) U/L Total Creatine Kinase (30-135) U/L CK-MB (CK-2) (0.0-2.4) ng/mL Troponin I (0.000-0.034) ng/mL Total Protein (6.3-8.2) g/dL Albumin (3.5-5.0) g/dL Urine Appearance (Clear) Urine Protein (Negative) Urine Glucose (UA) (Negative) Urine Ketones (Negative) Urine Blood (Negative) Ur Leukocyte Esterase (Negative) Urine WBC (0-5) /hpf Urine WBC Clumps (None) /hpf Urine Bacteria (None) /hpf Hyaline Casts (0-2) /lpf Urine Mucus (None) /hpf Urine Yeast (Budding) (None) /hpf Urine Opiates Screen (NotDetected) U Tricyclic Antidepress (NotDetected) U Benzodiazepines Scrn (NotDetected) 03/17/17 03/17/17 03/17/17 Range/Units 14:15 14:30 15:07 WBC (3.8-10.6) k/uL RBC (3.80-5.40) m/uL Hgb (11.4-16.0) gm/dL MCV (80.0-100.0) fL Neutrophils # (1.3-7.7) k/uL Monocytes # (0-1.0) k/uL INR (<1.2) APTT (22.0-30.0) sec ABG pH (7.35-7.45) ABG pCO2 (35-45) mmHg ABG pO2 (83-108) mmHg ABG HCO3 (21-25) mmol/L ABG Total CO2 (19-24) mmol/L ABG O2 Saturation (94-97) % ABG Lactic Acid (0.5-1.6) mmol/L Sodium (137-145) mmol/L Potassium (3.5-5.1) mmol/L Chloride (98-107) mmol/L Carbon Dioxide (22-30) mmol/L BUN (7-17) mg/dL Creatinine (0.52-1.04) mg/dL Glucose (74-99) mg/dL POC Glucose (mg/dL) 195 H 142 H (75-99) mg/dL Plasma Lactic Acid Art 10.2 H* (0.7-2.0) mmol/L Calcium (8.4-10.2) mg/dL Ionized Calcium Joseph (4.5-5.3) mg/dL Phosphorus (2.5-4.5) mg/dL Magnesium (1.6-2.3) mg/dL AST (14-36) U/L ALT (9-52) U/L Total Creatine Kinase (30-135) U/L CK-MB (CK-2) (0.0-2.4) ng/mL Troponin I (0.000-0.034) ng/mL Total Protein (6.3-8.2) g/dL Albumin (3.5-5.0) g/dL Urine Appearance (Clear) Urine Protein (Negative) Urine Glucose (UA) (Negative) Urine Ketones (Negative) Urine Blood (Negative) Ur Leukocyte Esterase (Negative) Urine WBC (0-5) /hpf Urine WBC Clumps (None) /hpf Urine Bacteria (None) /hpf Hyaline Casts (0-2) /lpf Urine Mucus (None) /hpf Urine Yeast (Budding) (None) /hpf Urine Opiates Screen (NotDetected) U Tricyclic Antidepress (NotDetected) U Benzodiazepines Scrn (NotDetected) 03/17/17 03/17/17 03/17/17 Range/Units 15:35 16:06 16:37 WBC (3.8-10.6) k/uL RBC (3.80-5.40) m/uL Hgb (11.4-16.0) gm/dL MCV (80.0-100.0) fL Neutrophils # (1.3-7.7) k/uL Monocytes # (0-1.0) k/uL INR (<1.2) APTT (22.0-30.0) sec ABG pH (7.35-7.45) ABG pCO2 (35-45) mmHg ABG pO2 (83-108) mmHg ABG HCO3 (21-25) mmol/L ABG Total CO2 (19-24) mmol/L ABG O2 Saturation (94-97) % ABG Lactic Acid (0.5-1.6) mmol/L Sodium (137-145) mmol/L Potassium (3.5-5.1) mmol/L Chloride (98-107) mmol/L Carbon Dioxide (22-30) mmol/L BUN (7-17) mg/dL Creatinine (0.52-1.04) mg/dL Glucose (74-99) mg/dL POC Glucose (mg/dL) 112 H 106 H 71 L (75-99) mg/dL Plasma Lactic Acid Art (0.7-2.0) mmol/L Calcium (8.4-10.2) mg/dL Ionized Calcium Joseph (4.5-5.3) mg/dL Phosphorus (2.5-4.5) mg/dL Magnesium (1.6-2.3) mg/dL AST (14-36) U/L ALT (9-52) U/L Total Creatine Kinase (30-135) U/L CK-MB (CK-2) (0.0-2.4) ng/mL Troponin I (0.000-0.034) ng/mL Total Protein (6.3-8.2) g/dL Albumin (3.5-5.0) g/dL Urine Appearance (Clear) Urine Protein (Negative) Urine Glucose (UA) (Negative) Urine Ketones (Negative) Urine Blood (Negative) Ur Leukocyte Esterase (Negative) Urine WBC (0-5) /hpf Urine WBC Clumps (None) /hpf Urine Bacteria (None) /hpf Hyaline Casts (0-2) /lpf Urine Mucus (None) /hpf Urine Yeast (Budding) (None) /hpf Urine Opiates Screen (NotDetected) U Tricyclic Antidepress (NotDetected) U Benzodiazepines Scrn (NotDetected) 03/17/17 03/17/17 03/17/17 Range/Units 17:08 18:12 18:17 WBC 18.3 H (3.8-10.6) k/uL RBC 3.57 L (3.80-5.40) m/uL Hgb (11.4-16.0) gm/dL MCV 103.7 H (80.0-100.0) fL Neutrophils # 16.1 H (1.3-7.7) k/uL Monocytes # (0-1.0) k/uL INR (<1.2) APTT (22.0-30.0) sec ABG pH (7.35-7.45) ABG pCO2 (35-45) mmHg ABG pO2 (83-108) mmHg ABG HCO3 (21-25) mmol/L ABG Total CO2 (19-24) mmol/L ABG O2 Saturation (94-97) % ABG Lactic Acid (0.5-1.6) mmol/L Sodium (137-145) mmol/L Potassium (3.5-5.1) mmol/L Chloride (98-107) mmol/L Carbon Dioxide (22-30) mmol/L BUN (7-17) mg/dL Creatinine (0.52-1.04) mg/dL Glucose (74-99) mg/dL POC Glucose (mg/dL) 157 H 67 L (75-99) mg/dL Plasma Lactic Acid Art (0.7-2.0) mmol/L Calcium (8.4-10.2) mg/dL Ionized Calcium Joseph (4.5-5.3) mg/dL Phosphorus (2.5-4.5) mg/dL Magnesium (1.6-2.3) mg/dL AST (14-36) U/L ALT (9-52) U/L Total Creatine Kinase (30-135) U/L CK-MB (CK-2) (0.0-2.4) ng/mL Troponin I (0.000-0.034) ng/mL Total Protein (6.3-8.2) g/dL Albumin (3.5-5.0) g/dL Urine Appearance (Clear) Urine Protein (Negative) Urine Glucose (UA) (Negative) Urine Ketones (Negative) Urine Blood (Negative) Ur Leukocyte Esterase (Negative) Urine WBC (0-5) /hpf Urine WBC Clumps (None) /hpf Urine Bacteria (None) /hpf Hyaline Casts (0-2) /lpf Urine Mucus (None) /hpf Urine Yeast (Budding) (None) /hpf Urine Opiates Screen (NotDetected) U Tricyclic Antidepress (NotDetected) U Benzodiazepines Scrn (NotDetected) 03/17/17 03/17/17 03/17/17 Range/Units 18:17 18:45 18:46 WBC (3.8-10.6) k/uL RBC (3.80-5.40) m/uL Hgb (11.4-16.0) gm/dL MCV (80.0-100.0) fL Neutrophils # (1.3-7.7) k/uL Monocytes # (0-1.0) k/uL INR (<1.2) APTT (22.0-30.0) sec ABG pH (7.35-7.45) ABG pCO2 (35-45) mmHg ABG pO2 (83-108) mmHg ABG HCO3 (21-25) mmol/L ABG Total CO2 (19-24) mmol/L ABG O2 Saturation (94-97) % ABG Lactic Acid (0.5-1.6) mmol/L Sodium (137-145) mmol/L Potassium 3.0 L* (3.5-5.1) mmol/L Chloride 112 H (98-107) mmol/L Carbon Dioxide 13 L (22-30) mmol/L BUN 35 H (7-17) mg/dL Creatinine 1.90 H (0.52-1.04) mg/dL Glucose 68 L (74-99) mg/dL POC Glucose (mg/dL) 64 L (75-99) mg/dL Plasma Lactic Acid Art (0.7-2.0) mmol/L Calcium 11.1 H (8.4-10.2) mg/dL Ionized Calcium Joseph (4.5-5.3) mg/dL Phosphorus (2.5-4.5) mg/dL Magnesium (1.6-2.3) mg/dL AST 520 H (14-36) U/L ALT 165 H (9-52) U/L Total Creatine Kinase (30-135) U/L CK-MB (CK-2) (0.0-2.4) ng/mL Troponin I (0.000-0.034) ng/mL Total Protein 5.2 L (6.3-8.2) g/dL Albumin 2.7 L (3.5-5.0) g/dL Urine Appearance Turbid H (Clear) Urine Protein 2+ H (Negative) Urine Glucose (UA) 1+ H (Negative) Urine Ketones 1+ H (Negative) Urine Blood Large H (Negative) Ur Leukocyte Esterase Small H (Negative) Urine WBC 9 H (0-5) /hpf Urine WBC Clumps Occasional H (None) /hpf Urine Bacteria Few H (None) /hpf Hyaline Casts 8 H (0-2) /lpf Urine Mucus Rare H (None) /hpf Urine Yeast (Budding) Moderate H (None) /hpf Urine Opiates Screen (NotDetected) U Tricyclic Antidepress (NotDetected) U Benzodiazepines Scrn (NotDetected) 03/17/17 03/17/17 03/17/17 Range/Units 19:11 19:34 20:16 WBC (3.8-10.6) k/uL RBC (3.80-5.40) m/uL Hgb (11.4-16.0) gm/dL MCV (80.0-100.0) fL Neutrophils # (1.3-7.7) k/uL Monocytes # (0-1.0) k/uL INR (<1.2) APTT (22.0-30.0) sec ABG pH (7.35-7.45) ABG pCO2 (35-45) mmHg ABG pO2 (83-108) mmHg ABG HCO3 (21-25) mmol/L ABG Total CO2 (19-24) mmol/L ABG O2 Saturation (94-97) % ABG Lactic Acid (0.5-1.6) mmol/L Sodium (137-145) mmol/L Potassium (3.5-5.1) mmol/L Chloride (98-107) mmol/L Carbon Dioxide (22-30) mmol/L BUN (7-17) mg/dL Creatinine (0.52-1.04) mg/dL Glucose (74-99) mg/dL POC Glucose (mg/dL) 127 H 143 H 102 H (75-99) mg/dL Plasma Lactic Acid Art (0.7-2.0) mmol/L Calcium (8.4-10.2) mg/dL Ionized Calcium Joseph (4.5-5.3) mg/dL Phosphorus (2.5-4.5) mg/dL Magnesium (1.6-2.3) mg/dL AST (14-36) U/L ALT (9-52) U/L Total Creatine Kinase (30-135) U/L CK-MB (CK-2) (0.0-2.4) ng/mL Troponin I (0.000-0.034) ng/mL Total Protein (6.3-8.2) g/dL Albumin (3.5-5.0) g/dL Urine Appearance (Clear) Urine Protein (Negative) Urine Glucose (UA) (Negative) Urine Ketones (Negative) Urine Blood (Negative) Ur Leukocyte Esterase (Negative) Urine WBC (0-5) /hpf Urine WBC Clumps (None) /hpf Urine Bacteria (None) /hpf Hyaline Casts (0-2) /lpf Urine Mucus (None) /hpf Urine Yeast (Budding) (None) /hpf Urine Opiates Screen (NotDetected) U Tricyclic Antidepress (NotDetected) U Benzodiazepines Scrn (NotDetected) 03/17/17 03/17/17 03/17/17 Range/Units 21:04 21:31 22:00 WBC (3.8-10.6) k/uL RBC (3.80-5.40) m/uL Hgb (11.4-16.0) gm/dL MCV (80.0-100.0) fL Neutrophils # (1.3-7.7) k/uL Monocytes # (0-1.0) k/uL INR (<1.2) APTT (22.0-30.0) sec ABG pH (7.35-7.45) ABG pCO2 (35-45) mmHg ABG pO2 (83-108) mmHg ABG HCO3 (21-25) mmol/L ABG Total CO2 (19-24) mmol/L ABG O2 Saturation (94-97) % ABG Lactic Acid (0.5-1.6) mmol/L Sodium (137-145) mmol/L Potassium 2.9 L* (3.5-5.1) mmol/L Chloride (98-107) mmol/L Carbon Dioxide (22-30) mmol/L BUN (7-17) mg/dL Creatinine (0.52-1.04) mg/dL Glucose (74-99) mg/dL POC Glucose (mg/dL) 169 H 151 H (75-99) mg/dL Plasma Lactic Acid Rat (0.7-2.0) mmol/L Calcium (8.4-10.2) mg/dL Ionized Calcium Joseph (4.5-5.3) mg/dL Phosphorus (2.5-4.5) mg/dL Magnesium 1.3 L (1.6-2.3) mg/dL AST (14-36) U/L ALT (9-52) U/L Total Creatine Kinase (30-135) U/L CK-MB (CK-2) (0.0-2.4) ng/mL Troponin I (0.000-0.034) ng/mL Total Protein (6.3-8.2) g/dL Albumin (3.5-5.0) g/dL Urine Appearance (Clear) Urine Protein (Negative) Urine Glucose (UA) (Negative) Urine Ketones (Negative) Urine Blood (Negative) Ur Leukocyte Esterase (Negative) Urine WBC (0-5) /hpf Urine WBC Clumps (None) /hpf Urine Bacteria (None) /hpf Hyaline Casts (0-2) /lpf Urine Mucus (None) /hpf Urine Yeast (Budding) (None) /hpf Urine Opiates Screen (NotDetected) U Tricyclic Antidepress (NotDetected) U Benzodiazepines Scrn (NotDetected) 03/17/17 03/17/17 03/17/17 Range/Units 22:04 22:30 23:27 WBC (3.8-10.6) k/uL RBC (3.80-5.40) m/uL Hgb (11.4-16.0) gm/dL MCV (80.0-100.0) fL Neutrophils # (1.3-7.7) k/uL Monocytes # (0-1.0) k/uL INR (<1.2) APTT (22.0-30.0) sec ABG pH (7.35-7.45) ABG pCO2 (35-45) mmHg ABG pO2 (83-108) mmHg ABG HCO3 (21-25) mmol/L ABG Total CO2 (19-24) mmol/L ABG O2 Saturation (94-97) % ABG Lactic Acid (0.5-1.6) mmol/L Sodium (137-145) mmol/L Potassium (3.5-5.1) mmol/L Chloride (98-107) mmol/L Carbon Dioxide (22-30) mmol/L BUN (7-17) mg/dL Creatinine (0.52-1.04) mg/dL Glucose (74-99) mg/dL POC Glucose (mg/dL) 130 H 113 H 206 H (75-99) mg/dL Plasma Lactic Acid Art (0.7-2.0) mmol/L Calcium (8.4-10.2) mg/dL Ionized Calcium Joseph (4.5-5.3) mg/dL Phosphorus (2.5-4.5) mg/dL Magnesium (1.6-2.3) mg/dL AST (14-36) U/L ALT (9-52) U/L Total Creatine Kinase (30-135) U/L CK-MB (CK-2) (0.0-2.4) ng/mL Troponin I (0.000-0.034) ng/mL Total Protein (6.3-8.2) g/dL Albumin (3.5-5.0) g/dL Urine Appearance (Clear) Urine Protein (Negative) Urine Glucose (UA) (Negative) Urine Ketones (Negative) Urine Blood (Negative) Ur Leukocyte Esterase (Negative) Urine WBC (0-5) /hpf Urine WBC Clumps (None) /hpf Urine Bacteria (None) /hpf Hyaline Casts (0-2) /lpf Urine Mucus (None) /hpf Urine Yeast (Budding) (None) /hpf Urine Opiates Screen (NotDetected) U Tricyclic Antidepress (NotDetected) U Benzodiazepines Scrn (NotDetected) 03/18/17 03/18/17 03/18/17 Range/Units 00:03 00:30 00:56 WBC (3.8-10.6) k/uL RBC (3.80-5.40) m/uL Hgb (11.4-16.0) gm/dL MCV (80.0-100.0) fL Neutrophils # (1.3-7.7) k/uL Monocytes # (0-1.0) k/uL INR (<1.2) APTT (22.0-30.0) sec ABG pH (7.35-7.45) ABG pCO2 (35-45) mmHg ABG pO2 (83-108) mmHg ABG HCO3 (21-25) mmol/L ABG Total CO2 (19-24) mmol/L ABG O2 Saturation (94-97) % ABG Lactic Acid (0.5-1.6) mmol/L Sodium (137-145) mmol/L Potassium (3.5-5.1) mmol/L Chloride (98-107) mmol/L Carbon Dioxide (22-30) mmol/L BUN (7-17) mg/dL Creatinine (0.52-1.04) mg/dL Glucose (74-99) mg/dL POC Glucose (mg/dL) 140 H 144 H 149 H (75-99) mg/dL Plasma Lactic Acid Art (0.7-2.0) mmol/L Calcium (8.4-10.2) mg/dL Ionized Calcium Joseph (4.5-5.3) mg/dL Phosphorus (2.5-4.5) mg/dL Magnesium (1.6-2.3) mg/dL AST (14-36) U/L ALT (9-52) U/L Total Creatine Kinase (30-135) U/L CK-MB (CK-2) (0.0-2.4) ng/mL Troponin I (0.000-0.034) ng/mL Total Protein (6.3-8.2) g/dL Albumin (3.5-5.0) g/dL Urine Appearance (Clear) Urine Protein (Negative) Urine Glucose (UA) (Negative) Urine Ketones (Negative) Urine Blood (Negative) Ur Leukocyte Esterase (Negative) Urine WBC (0-5) /hpf Urine WBC Clumps (None) /hpf Urine Bacteria (None) /hpf Hyaline Casts (0-2) /lpf Urine Mucus (None) /hpf Urine Yeast (Budding) (None) /hpf Urine Opiates Screen (NotDetected) U Tricyclic Antidepress (NotDetected) U Benzodiazepines Scrn (NotDetected) 03/18/17 03/18/17 03/18/17 Range/Units 01:30 02:10 02:30 WBC (3.8-10.6) k/uL RBC (3.80-5.40) m/uL Hgb (11.4-16.0) gm/dL MCV (80.0-100.0) fL Neutrophils # (1.3-7.7) k/uL Monocytes # (0-1.0) k/uL INR (<1.2) APTT (22.0-30.0) sec ABG pH (7.35-7.45) ABG pCO2 (35-45) mmHg ABG pO2 (83-108) mmHg ABG HCO3 (21-25) mmol/L ABG Total CO2 (19-24) mmol/L ABG O2 Saturation (94-97) % ABG Lactic Acid (0.5-1.6) mmol/L Sodium (137-145) mmol/L Potassium (3.5-5.1) mmol/L Chloride (98-107) mmol/L Carbon Dioxide (22-30) mmol/L BUN (7-17) mg/dL Creatinine (0.52-1.04) mg/dL Glucose (74-99) mg/dL POC Glucose (mg/dL) 157 H 158 H 173 H (75-99) mg/dL Plasma Lactic Acid Art (0.7-2.0) mmol/L Calcium (8.4-10.2) mg/dL Ionized Calcium Joseph (4.5-5.3) mg/dL Phosphorus (2.5-4.5) mg/dL Magnesium (1.6-2.3) mg/dL AST (14-36) U/L ALT (9-52) U/L Total Creatine Kinase (30-135) U/L CK-MB (CK-2) (0.0-2.4) ng/mL Troponin I (0.000-0.034) ng/mL Total Protein (6.3-8.2) g/dL Albumin (3.5-5.0) g/dL Urine Appearance (Clear) Urine Protein (Negative) Urine Glucose (UA) (Negative) Urine Ketones (Negative) Urine Blood (Negative) Ur Leukocyte Esterase (Negative) Urine WBC (0-5) /hpf Urine WBC Clumps (None) /hpf Urine Bacteria (None) /hpf Hyaline Casts (0-2) /lpf Urine Mucus (None) /hpf Urine Yeast (Budding) (None) /hpf Urine Opiates Screen (NotDetected) U Tricyclic Antidepress (NotDetected) U Benzodiazepines Scrn (NotDetected) 03/18/17 03/18/17 03/18/17 Range/Units 03:07 03:30 04:00 WBC 22.8 H (3.8-10.6) k/uL RBC 3.49 L (3.80-5.40) m/uL Hgb 11.2 L (11.4-16.0) gm/dL MCV 100.4 H (80.0-100.0) fL Neutrophils # 19.8 H (1.3-7.7) k/uL Monocytes # 1.2 H (0-1.0) k/uL INR (<1.2) APTT (22.0-30.0) sec ABG pH (7.35-7.45) ABG pCO2 (35-45) mmHg ABG pO2 (83-108) mmHg ABG HCO3 (21-25) mmol/L ABG Total CO2 (19-24) mmol/L ABG O2 Saturation (94-97) % ABG Lactic Acid (0.5-1.6) mmol/L Sodium (137-145) mmol/L Potassium (3.5-5.1) mmol/L Chloride (98-107) mmol/L Carbon Dioxide (22-30) mmol/L BUN (7-17) mg/dL Creatinine (0.52-1.04) mg/dL Glucose (74-99) mg/dL POC Glucose (mg/dL) 178 H 149 H (75-99) mg/dL Plasma Lactic Acid Art (0.7-2.0) mmol/L Calcium (8.4-10.2) mg/dL Ionized Calcium Joseph (4.5-5.3) mg/dL Phosphorus (2.5-4.5) mg/dL Magnesium (1.6-2.3) mg/dL AST (14-36) U/L ALT (9-52) U/L Total Creatine Kinase (30-135) U/L CK-MB (CK-2) (0.0-2.4) ng/mL Troponin I (0.000-0.034) ng/mL Total Protein (6.3-8.2) g/dL Albumin (3.5-5.0) g/dL Urine Appearance (Clear) Urine Protein (Negative) Urine Glucose (UA) (Negative) Urine Ketones (Negative) Urine Blood (Negative) Ur Leukocyte Esterase (Negative) Urine WBC (0-5) /hpf Urine WBC Clumps (None) /hpf Urine Bacteria (None) /hpf Hyaline Casts (0-2) /lpf Urine Mucus (None) /hpf Urine Yeast (Budding) (None) /hpf Urine Opiates Screen (NotDetected) U Tricyclic Antidepress (NotDetected) U Benzodiazepines Scrn (NotDetected) 03/18/17 03/18/17 03/18/17 Range/Units 04:00 04:00 04:00 WBC (3.8-10.6) k/uL RBC (3.80-5.40) m/uL Hgb (11.4-16.0) gm/dL MCV (80.0-100.0) fL Neutrophils # (1.3-7.7) k/uL Monocytes # (0-1.0) k/uL INR (<1.2) APTT 21.2 L (22.0-30.0) sec ABG pH (7.35-7.45) ABG pCO2 (35-45) mmHg ABG pO2 (83-108) mmHg ABG HCO3 (21-25) mmol/L ABG Total CO2 (19-24) mmol/L ABG O2 Saturation (94-97) % ABG Lactic Acid 3.1 H* (0.5-1.6) mmol/L Sodium 128 L (137-145) mmol/L Potassium 3.3 L (3.5-5.1) mmol/L Chloride (98-107) mmol/L Carbon Dioxide 16 L (22-30) mmol/L BUN 37 H (7-17) mg/dL Creatinine 2.29 H (0.52-1.04) mg/dL Glucose 146 H (74-99) mg/dL POC Glucose (mg/dL) (75-99) mg/dL Plasma Lactic Acid Art (0.7-2.0) mmol/L Calcium (8.4-10.2) mg/dL Ionized Calcium Joseph 6.0 H* (4.5-5.3) mg/dL Phosphorus 4.9 H (2.5-4.5) mg/dL Magnesium 2.4 H (1.6-2.3) mg/dL AST 388 H (14-36) U/L ALT 152 H (9-52) U/L Total Creatine Kinase (30-135) U/L CK-MB (CK-2) (0.0-2.4) ng/mL Troponin I (0.000-0.034) ng/mL Total Protein 4.9 L (6.3-8.2) g/dL Albumin 2.3 L (3.5-5.0) g/dL Urine Appearance (Clear) Urine Protein (Negative) Urine Glucose (UA) (Negative) Urine Ketones (Negative) Urine Blood (Negative) Ur Leukocyte Esterase (Negative) Urine WBC (0-5) /hpf Urine WBC Clumps (None) /hpf Urine Bacteria (None) /hpf Hyaline Casts (0-2) /lpf Urine Mucus (None) /hpf Urine Yeast (Budding) (None) /hpf Urine Opiates Screen (NotDetected) U Tricyclic Antidepress (NotDetected) U Benzodiazepines Scrn (NotDetected) 03/18/17 03/18/17 03/18/17 Range/Units 04:01 04:29 04:37 WBC (3.8-10.6) k/uL RBC (3.80-5.40) m/uL Hgb (11.4-16.0) gm/dL MCV (80.0-100.0) fL Neutrophils # (1.3-7.7) k/uL Monocytes # (0-1.0) k/uL INR (<1.2) APTT (22.0-30.0) sec ABG pH 7.23 L (7.35-7.45) ABG pCO2 (35-45) mmHg ABG pO2 80 L (83-108) mmHg ABG HCO3 16 L (21-25) mmol/L ABG Total CO2 18 L (19-24) mmol/L ABG O2 Saturation 93.0 L (94-97) % ABG Lactic Acid (0.5-1.6) mmol/L Sodium (137-145) mmol/L Potassium (3.5-5.1) mmol/L Chloride (98-107) mmol/L Carbon Dioxide (22-30) mmol/L BUN (7-17) mg/dL Creatinine (0.52-1.04) mg/dL Glucose (74-99) mg/dL POC Glucose (mg/dL) 144 H 123 H (75-99) mg/dL Plasma Lactic Acid Art (0.7-2.0) mmol/L Calcium (8.4-10.2) mg/dL Ionized Calcium Joseph (4.5-5.3) mg/dL Phosphorus (2.5-4.5) mg/dL Magnesium (1.6-2.3) mg/dL AST (14-36) U/L ALT (9-52) U/L Total Creatine Kinase (30-135) U/L CK-MB (CK-2) (0.0-2.4) ng/mL Troponin I (0.000-0.034) ng/mL Total Protein (6.3-8.2) g/dL Albumin (3.5-5.0) g/dL Urine Appearance (Clear) Urine Protein (Negative) Urine Glucose (UA) (Negative) Urine Ketones (Negative) Urine Blood (Negative) Ur Leukocyte Esterase (Negative) Urine WBC (0-5) /hpf Urine WBC Clumps (None) /hpf Urine Bacteria (None) /hpf Hyaline Casts (0-2) /lpf Urine Mucus (None) /hpf Urine Yeast (Budding) (None) /hpf Urine Opiates Screen (NotDetected) U Tricyclic Antidepress (NotDetected) U Benzodiazepines Scrn (NotDetected) 03/18/17 03/18/17 03/18/17 Range/Units 05:01 05:33 06:32 WBC (3.8-10.6) k/uL RBC (3.80-5.40) m/uL Hgb (11.4-16.0) gm/dL MCV (80.0-100.0) fL Neutrophils # (1.3-7.7) k/uL Monocytes # (0-1.0) k/uL INR (<1.2) APTT (22.0-30.0) sec ABG pH (7.35-7.45) ABG pCO2 (35-45) mmHg ABG pO2 (83-108) mmHg ABG HCO3 (21-25) mmol/L ABG Total CO2 (19-24) mmol/L ABG O2 Saturation (94-97) % ABG Lactic Acid (0.5-1.6) mmol/L Sodium (137-145) mmol/L Potassium (3.5-5.1) mmol/L Chloride (98-107) mmol/L Carbon Dioxide (22-30) mmol/L BUN (7-17) mg/dL Creatinine (0.52-1.04) mg/dL Glucose (74-99) mg/dL POC Glucose (mg/dL) 126 H 117 H 194 H (75-99) mg/dL Plasma Lactic Acid Art (0.7-2.0) mmol/L Calcium (8.4-10.2) mg/dL Ionized Calcium Joseph (4.5-5.3) mg/dL Phosphorus (2.5-4.5) mg/dL Magnesium (1.6-2.3) mg/dL AST (14-36) U/L ALT (9-52) U/L Total Creatine Kinase (30-135) U/L CK-MB (CK-2) (0.0-2.4) ng/mL Troponin I (0.000-0.034) ng/mL Total Protein (6.3-8.2) g/dL Albumin (3.5-5.0) g/dL Urine Appearance (Clear) Urine Protein (Negative) Urine Glucose (UA) (Negative) Urine Ketones (Negative) Urine Blood (Negative) Ur Leukocyte Esterase (Negative) Urine WBC (0-5) /hpf Urine WBC Clumps (None) /hpf Urine Bacteria (None) /hpf Hyaline Casts (0-2) /lpf Urine Mucus (None) /hpf Urine Yeast (Budding) (None) /hpf Urine Opiates Screen (NotDetected) U Tricyclic Antidepress (NotDetected) U Benzodiazepines Scrn (NotDetected) 03/18/17 Range/Units 07:05 WBC (3.8-10.6) k/uL RBC (3.80-5.40) m/uL Hgb (11.4-16.0) gm/dL MCV (80.0-100.0) fL Neutrophils # (1.3-7.7) k/uL Monocytes # (0-1.0) k/uL INR (<1.2) APTT (22.0-30.0) sec ABG pH (7.35-7.45) ABG pCO2 (35-45) mmHg ABG pO2 (83-108) mmHg ABG HCO3 (21-25) mmol/L ABG Total CO2 (19-24) mmol/L ABG O2 Saturation (94-97) % ABG Lactic Acid (0.5-1.6) mmol/L Sodium (137-145) mmol/L Potassium (3.5-5.1) mmol/L Chloride (98-107) mmol/L Carbon Dioxide (22-30) mmol/L BUN (7-17) mg/dL Creatinine (0.52-1.04) mg/dL Glucose (74-99) mg/dL POC Glucose (mg/dL) 147 H (75-99) mg/dL Plasma Lactic Acid Art (0.7-2.0) mmol/L Calcium (8.4-10.2) mg/dL Ionized Calcium Joseph (4.5-5.3) mg/dL Phosphorus (2.5-4.5) mg/dL Magnesium (1.6-2.3) mg/dL AST (14-36) U/L ALT (9-52) U/L Total Creatine Kinase (30-135) U/L CK-MB (CK-2) (0.0-2.4) ng/mL Troponin I (0.000-0.034) ng/mL Total Protein (6.3-8.2) g/dL Albumin (3.5-5.0) g/dL Urine Appearance (Clear) Urine Protein (Negative) Urine Glucose (UA) (Negative) Urine Ketones (Negative) Urine Blood (Negative) Ur Leukocyte Esterase (Negative) Urine WBC (0-5) /hpf Urine WBC Clumps (None) /hpf Urine Bacteria (None) /hpf Hyaline Casts (0-2) /lpf Urine Mucus (None) /hpf Urine Yeast (Budding) (None) /hpf Urine Opiates Screen (NotDetected) U Tricyclic Antidepress (NotDetected) U Benzodiazepines Scrn (NotDetected) Microbiology - Last 24 Hours (Table) 03/17/17 16:56 Gram Stain - Preliminary Sputum Sputum Culture - Preliminary Assessment and Plan (1) Benzodiazepine overdose Current Visit: Yes Status: Acute Code(s): T42.4X1A - POISONING BY BENZODIAZEPINES, ACCIDENTAL, INIT SNOMED Code(s): 257164801 (2) Calcium channel amadou overdose Current Visit: Yes Status: Acute Code(s): T46.1X1A - POISONING BY CALCIUM- CHANNEL BLOCKERS, ACCIDENTAL, INIT SNOMED Code(s): 365395920 (3) Renal insufficiency Current Visit: Yes Status: Acute Code(s): N28.9 - DISORDER OF KIDNEY AND URETER, UNSPECIFIED SNOMED Code(s): 660878775 (4) Rhabdomyolysis Current Visit: Yes Status: Acute Code(s): M62.82 - RHABDOMYOLYSIS SNOMED Code(s): 219675956 (5) Unresponsive Current Visit: Yes Status: Acute Code(s): R41.89 - OTH SYMPTOMS AND SIGNS W COGNITIVE FUNCTIONS AND AWARENESS SNOMED Code(s): 664308005 (6) Hypertension Current Visit: No Status: Acute Code(s): I10 - ESSENTIAL (PRIMARY) HYPERTENSION SNOMED Code(s): 42168894 (7) Major depressive disorder, severe Current Visit: No Status: Acute Code(s): F32.2 - MAJOR DEPRESSV DISORD, SINGLE EPSD, SEV W/O PSYCH FEATURES SNOMED Code(s): 745010773 (8) Opiate withdrawal Current Visit: No Status: Acute Code(s): F11.23 - OPIOID DEPENDENCE WITH WITHDRAWAL SNOMED Code(s): 62622815 Plan: Continue supportive care at this time. Check CBC CMP chest x-ray in a.m. Prognosis is guarded secondary to her multiple comorbidities. See orders otherwise.
[2017-03-18 07:58] LABS: Glucose,Whole Blood 147 mg/dL (75-99)
[2017-03-18 08:05] LABS: Glucose,Whole Blood 131 mg/dL (75-99)
[2017-03-18] MEDS: CHLORHEXIDINE GLUCONATE 15 ML CUP MUCOUS MEM SCH (08:17)
--- NOTE | 2017-03-18 08:22 | XR ---
EXAMINATION TYPE: XR chest 1V portable DATE OF EXAM: 03/18/2017 COMPARISON: 03/17/2017 HISTORY: Endotracheal tube placement TECHNIQUE: Single frontal view of the chest is obtained. FINDINGS: There is no focal air space opacity, pleural effusion, or pneumothorax seen. The cardiac silhouette size is within normal limits. The osseous structures are intact. Enteric tube has been a dvanced with its fenestrated portion just below the gastroesophageal junction and its distal tip orie nted laterally within the left upper quadrant. Endotracheal tube is unchanged. IMPRESSION: Interval advancement of the enteric tube, now appropriately placed and stable endotrache al tube. No acute cardiopulmonary process.
[2017-03-18 08:47] LABS: Glucose,Whole Blood 120 mg/dL (75-99)
[2017-03-18] MEDS ORDERED: ENOXAPARIN 40 MG/0.4 ML SYRINGE SQ SCH (09:00)
[2017-03-18] MEDS ORDERED: PANTOPRAZOLE 40 MG/10 ML VIAL IVP SCH (09:00)
[2017-03-18] MEDS ORDERED: SODIUM CHLORIDE 0.9% 99 ML with VASOPRESSIN 20 UNIT IV SCH ×2 (09:00)
[2017-03-18 09:22] LABS: Glucose,Whole Blood 112 mg/dL (75-99)
[2017-03-18 09:35] VITALS: TEMP 98.4
[2017-03-18 09:38] LABS: Glucose,Whole Blood 112 mg/dL (75-99)
--- NOTE | 2017-03-18 10:02 | P.PN ---
Subjective Progress Note Date: 03/18/17 Principal diagnosis: Multidrug overdose. Acute respiratory failure requiring intubation and mechanical ventilation This is a 56-year-old female patient who follows with Dr. Sommer as her primary care physician. She has a history of hypertension, osteoarthritis, migraines, anxiety/depression. She also has chronic and ongoing tobacco dependence. She was brought into the emergency room this morning by EMS. Her found her unresponsive she is felt to maybe having taken the overdose of Norvasc, Remeron and Restoril. She was unresponsive and unable to protect her airway. She was subsequently intubated and placed on mechanical ventilator. We are seeing her in consultation in the emergency room. Current vent settings are assist control of 24, tidal volume 350, FiO2 60% and a PEEP of 5. Arterial blood gases revealed a PaO2 of 325, pCO2 27, pH 7.3 100% FiO2. Chest x-ray reveals no acute pulmonary process. White count 18.6, hemoglobin 11.4, potassium 3.1, chloride 111, bicarb 13, creatinine 1.73. Her lactic acid level is 7.3. AST 148 ALT 69. Urine drug screen is positive for opiates, tricyclic antidepressants and benzodiazepines. She is being treated with fluids, epinephrine, norepinephrine currently at 60 mcg/kg/m. She had received calcium. The plan is for high dose insulin, insulin drip currently at 41 units per hour. Of note, the patient was here one month ago for major depressive disorder and opiate withdrawal. On 03/18/2017 patient is seen in follow-up in the intensive care. She remains on a mechanical ventilator, assist control mode with a rate of 24, total of 350 , FiO2 35% and PEEP of 5. Blood gases from this morning were reviewed and show pO2 80, pCO2 41, and pH of 7.23, primary metabolic acidosis, likely from hypoperfusion, acute renal failure due to hypotension from calcium channel amadou toxicity. Patient is sedated on Diprivan currently at 30 mics per kilo per minute, maintenance IV is 20% dextrose infusing at 150 mile per hour, lactated Ringer's at 50 no per hour, Levothroid is currently at 47 mics per minute, insulin is infusing at 41 units. Patient remains hypotensive, systolic is in the 60s. Persistently acidotic. We will attempt vasopressin at physiologic dose at 0.03 units per hour. Neurologically patient is sedated on mechanical ventilation, pupils are equal and reactive, no response to pain noted. Lung sounds are clear to auscultation, abdomen is distended, nontender. Bowel sounds are absent. There is generalized nonpitting edema noted in patient's arms, legs and abdomen. Dusky, mottling color noted to patient's extremities, and circumoral cyanosis. Patient is oliguric, urine output is 5- 10 mL per hour. There is evidence of leukocytosis with WBCs at 22.8 today, M sodium is at 128, serum potassium is 3.3, carbon dioxide is 16 and 9 gap is 8, BUS 37 and creatinine is 2.29. Ionized calcium is at 6. Urine drug screen was positive for opiates, tricyclic antidepressants, and benzodiazepines. Patient' s sisters at the bedside, went to [place] pick[place] the couple's children. Dr. Vasquez had a discussion with the patient's sister about patient's prognosis. Patient has had a previous suicidal attempt history with horse tranquilizers, long-standing history of depression and psychosis. Sister was not aware of her seeing a psychiatrist for her psychiatric history. Objective - Vital Signs Vital signs: Vital Signs Temp 98.4 F 03/18/17 08:00 Pulse 84 03/18/17 09:30 Resp 29 H 03/18/17 09:30 BP 70/51 03/18/17 09:30 Pulse Ox 85 L 03/18/17 09:30 Intake & Output 03/17/17 03/18/17 03/18/17 18:59 06:59 18:59 Intake Total 3082.2 4093.452 72.468 Output Total 575 790 Balance 2507.2 3303.452 72.468 Weight 40.823 kg 49 kg Intake: IV 2973 3119 Calcium Chloride 800 mg 200 In Sodium Chloride 0.9% 100 ml @ 100 mls/hr IV ONCE ONE Rx#:[id number] Dextrose 10% in Water 500 1050 ml Dextrose 50%-Water Syringe 150 ml In Empty Bag 1 bag @ 150 mls/hr IV .Q4H20M [facility] Rx#: [id number] Dextrose 10% in Water 500 400 700 ml In Empty Bag 1 bag @ 150 mls/hr IV .Q3H20M [facility] Rx#:[id number] Dextrose 5% in Water 1, 250 0 000 ml @ 100 mls/hr IV . Q10H [facility] Rx#:[id number] Insulin Regular 100 unit 123 369 In Sodium Chloride 0.9% 100 ml @ 41 UNIT/HR 41.41 mls/hr IV .Q2H27M [facility] Rx #:[id number] Lactated Ringers 1,000 ml 600 @ 50 mls/hr IV .Q20H [facility] Rx#:[id number] Lactated Ringers 1,000 ml 2000 @ 999 mls/hr IV .Q1H1M [facility] Rx#:[id number] Magnesium Sulfate-D5w Pmx 400 1 gm In Dextrose/Water 1 100ml.bag @ 100 mls/hr IVPB Q1H [facility] Rx#: [id number] Intake, IV Titration 109.2 974.452 72.468 Amount Insulin Regular 100 unit 109.2 404.910 72.468 In Sodium Chloride 0.9% 100 ml @ 41 UNIT/HR 41.41 mls/hr IV .Q2H27M [facility] Rx #:[id number] Norepinephrin 16 mg-0.9% 272.031 Ns Pmx 16 mg In 250 ml @ Titrate IV .Q0M [facility] Rx#: [id number] Norepinephrin 4 mg-0.9% 250 Ns Pmx 4 mg In 250 ml @ Titrate IV .Q0M [facility] Rx#: [id number] Propofol 1,000 mg In 100 47.511 ml @ Titrate IV .Q0M [facility] Rx#:[id number] Output: Gastric Drainage 450 Urine 125 90 Uretheral ([place]) 100 Emesis 700 Other: Voiding Method Indwelling Catheter Indwelling Catheter ABP, PAP, CO, CI - Last Documented Arterial Blood Pressure 57/43 - Exam GENERAL EXAM: Intubated, sedated. HEAD: Normocephalic. EYES: Sluggish reaction of pupils, equal size. NOSE: Clear with pink turbinates. THROAT: Oral endotracheal and gastric tube secured in place. NECK: No masses, no JVD. CHEST: No chest wall deformity. LUNGS: Equal air entry with no crackles, wheeze, rhonchi or dullness. CVS: S1 and S2 normal with no audible murmur, regular rhythm. ABDOMEN: No hepatosplenomegaly, normal bowel sounds, no guarding or rigidity. SPINE: No scoliosis or deformity SKIN: No rashes EXTREMITIES: There generalized nonpitting edema. No clubbing, mottling color noted to extremities. Peripheral pulses are intact. - Labs CBC & Chem 7: 03/18/17 04:00 03/18/17 04:00 Labs: Abnormal Lab Results - Last 24 Hours (Table) 03/17/17 03/17/17 03/17/17 Range/Units 10:30 10:30 10:30 WBC 18.6 H (3.8-10.6) k/uL RBC 3.54 L (3.80-5.40) m/uL Hgb (11.4-16.0) gm/dL MCV 101.1 H (80.0-100.0) fL Neutrophils # 15.6 H (1.3-7.7) k/uL Monocytes # (0-1.0) k/uL INR (<1.2) APTT (22.0-30.0) sec ABG pH (7.35-7.45) ABG pCO2 (35-45) mmHg ABG pO2 (83-108) mmHg ABG HCO3 (21-25) mmol/L ABG Total CO2 (19-24) mmol/L ABG O2 Saturation (94-97) % ABG Lactic Acid (0.5-1.6) mmol/L Sodium (137-145) mmol/L Potassium 3.1 L (3.5-5.1) mmol/L Chloride 111 H (98-107) mmol/L Carbon Dioxide 13 L (22-30) mmol/L BUN 32 H (7-17) mg/dL Creatinine 1.73 H (0.52-1.04) mg/dL Glucose 210 H (74-99) mg/dL POC Glucose (mg/dL) (75-99) mg/dL Plasma Lactic Acid Art (0.7-2.0) mmol/L Calcium 11.0 H (8.4-10.2) mg/dL Ionized Calcium Joseph (4.5-5.3) mg/dL Phosphorus (2.5-4.5) mg/dL Magnesium (1.6-2.3) mg/dL AST 148 H (14-36) U/L ALT 69 H (9-52) U/L Total Creatine Kinase 7130 H (30-135) U/L CK-MB (CK-2) 36.3 H* (0.0-2.4) ng/mL Troponin I 0.039 H* (0.000-0.034) ng/mL Total Protein 5.1 L (6.3-8.2) g/dL Albumin 2.5 L (3.5-5.0) g/dL Urine Appearance (Clear) Urine Protein (Negative) Urine Glucose (UA) (Negative) Urine Ketones (Negative) Urine Blood (Negative) Ur Leukocyte Esterase (Negative) Urine WBC (0-5) /hpf Urine WBC Clumps (None) /hpf Urine Bacteria (None) /hpf Hyaline Casts (0-2) /lpf Urine Mucus (None) /hpf Urine Yeast (Budding) (None) /hpf Urine Opiates Screen (NotDetected) U Tricyclic Antidepress (NotDetected) U Benzodiazepines Scrn (NotDetected) 03/17/17 03/17/17 03/17/17 Range/Units 10:30 10:30 10:30 WBC (3.8-10.6) k/uL RBC (3.80-5.40) m/uL Hgb (11.4-16.0) gm/dL MCV (80.0-100.0) fL Neutrophils # (1.3-7.7) k/uL Monocytes # (0-1.0) k/uL INR 1.2 H (<1.2) APTT (22.0-30.0) sec ABG pH (7.35-7.45) ABG pCO2 (35-45) mmHg ABG pO2 (83-108) mmHg ABG HCO3 (21-25) mmol/L ABG Total CO2 (19-24) mmol/L ABG O2 Saturation (94-97) % ABG Lactic Acid (0.5-1.6) mmol/L Sodium (137-145) mmol/L Potassium (3.5-5.1) mmol/L Chloride (98-107) mmol/L Carbon Dioxide (22-30) mmol/L BUN (7-17) mg/dL Creatinine (0.52-1.04) mg/dL Glucose (74-99) mg/dL POC Glucose (mg/dL) (75-99) mg/dL Plasma Lactic Acid Art 7.3 H* (0.7-2.0) mmol/L Calcium (8.4-10.2) mg/dL Ionized Calcium Joseph (4.5-5.3) mg/dL Phosphorus (2.5-4.5) mg/dL Magnesium (1.6-2.3) mg/dL AST (14-36) U/L ALT (9-52) U/L Total Creatine Kinase (30-135) U/L CK-MB (CK-2) (0.0-2.4) ng/mL Troponin I (0.000-0.034) ng/mL Total Protein (6.3-8.2) g/dL Albumin (3.5-5.0) g/dL Urine Appearance (Clear) Urine Protein (Negative) Urine Glucose (UA) (Negative) Urine Ketones (Negative) Urine Blood (Negative) Ur Leukocyte Esterase (Negative) Urine WBC (0-5) /hpf Urine WBC Clumps (None) /hpf Urine Bacteria (None) /hpf Hyaline Casts (0-2) /lpf Urine Mucus (None) /hpf Urine Yeast (Budding) (None) /hpf Urine Opiates Screen Detected H (NotDetected) U Tricyclic Antidepress Detected H (NotDetected) U Benzodiazepines Scrn Detected H (NotDetected) 03/17/17 03/17/17 03/17/17 Range/Units 10:44 11:37 13:04 WBC (3.8-10.6) k/uL RBC (3.80-5.40) m/uL Hgb (11.4-16.0) gm/dL MCV (80.0-100.0) fL Neutrophils # (1.3-7.7) k/uL Monocytes # (0-1.0) k/uL INR (<1.2) APTT (22.0-30.0) sec ABG pH 7.31 L (7.35-7.45) ABG pCO2 27 L (35-45) mmHg ABG pO2 325 H (83-108) mmHg ABG HCO3 14 L (21-25) mmol/L ABG Total CO2 14 L (19-24) mmol/L ABG O2 Saturation 100.0 H (94-97) % ABG Lactic Acid (0.5-1.6) mmol/L Sodium (137-145) mmol/L Potassium (3.5-5.1) mmol/L Chloride (98-107) mmol/L Carbon Dioxide (22-30) mmol/L BUN (7-17) mg/dL Creatinine (0.52-1.04) mg/dL Glucose (74-99) mg/dL POC Glucose (mg/dL) 258 H 269 H (75-99) mg/dL Plasma Lactic Acid Art (0.7-2.0) mmol/L Calcium (8.4-10.2) mg/dL Ionized Calcium Joseph (4.5-5.3) mg/dL Phosphorus (2.5-4.5) mg/dL Magnesium (1.6-2.3) mg/dL AST (14-36) U/L ALT (9-52) U/L Total Creatine Kinase (30-135) U/L CK-MB (CK-2) (0.0-2.4) ng/mL Troponin I (0.000-0.034) ng/mL Total Protein (6.3-8.2) g/dL Albumin (3.5-5.0) g/dL Urine Appearance (Clear) Urine Protein (Negative) Urine Glucose (UA) (Negative) Urine Ketones (Negative) Urine Blood (Negative) Ur Leukocyte Esterase (Negative) Urine WBC (0-5) /hpf Urine WBC Clumps (None) /hpf Urine Bacteria (None) /hpf Hyaline Casts (0-2) /lpf Urine Mucus (None) /hpf Urine Yeast (Budding) (None) /hpf Urine Opiates Screen (NotDetected) U Tricyclic Antidepress (NotDetected) U Benzodiazepines Scrn (NotDetected) 03/17/17 03/17/17 03/17/17 Range/Units 14:15 14:30 15:07 WBC (3.8-10.6) k/uL RBC (3.80-5.40) m/uL Hgb (11.4-16.0) gm/dL MCV (80.0-100.0) fL Neutrophils # (1.3-7.7) k/uL Monocytes # (0-1.0) k/uL INR (<1.2) APTT (22.0-30.0) sec ABG pH (7.35-7.45) ABG pCO2 (35-45) mmHg ABG pO2 (83-108) mmHg ABG HCO3 (21-25) mmol/L ABG Total CO2 (19-24) mmol/L ABG O2 Saturation (94-97) % ABG Lactic Acid (0.5-1.6) mmol/L Sodium (137-145) mmol/L Potassium (3.5-5.1) mmol/L Chloride (98-107) mmol/L Carbon Dioxide (22-30) mmol/L BUN (7-17) mg/dL Creatinine (0.52-1.04) mg/dL Glucose (74-99) mg/dL POC Glucose (mg/dL) 195 H 142 H (75-99) mg/dL Plasma Lactic Acid Art 10.2 H* (0.7-2.0) mmol/L Calcium (8.4-10.2) mg/dL Ionized Calcium Joseph (4.5-5.3) mg/dL Phosphorus (2.5-4.5) mg/dL Magnesium (1.6-2.3) mg/dL AST (14-36) U/L ALT (9-52) U/L Total Creatine Kinase (30-135) U/L CK-MB (CK-2) (0.0-2.4) ng/mL Troponin I (0.000-0.034) ng/mL Total Protein (6.3-8.2) g/dL Albumin (3.5-5.0) g/dL Urine Appearance (Clear) Urine Protein (Negative) Urine Glucose (UA) (Negative) Urine Ketones (Negative) Urine Blood (Negative) Ur Leukocyte Esterase (Negative) Urine WBC (0-5) /hpf Urine WBC Clumps (None) /hpf Urine Bacteria (None) /hpf Hyaline Casts (0-2) /lpf Urine Mucus (None) /hpf Urine Yeast (Budding) (None) /hpf Urine Opiates Screen (NotDetected) U Tricyclic Antidepress (NotDetected) U Benzodiazepines Scrn (NotDetected) 03/17/17 03/17/17 03/17/17 Range/Units 15:35 16:06 16:37 WBC (3.8-10.6) k/uL RBC (3.80-5.40) m/uL Hgb (11.4-16.0) gm/dL MCV (80.0-100.0) fL Neutrophils # (1.3-7.7) k/uL Monocytes # (0-1.0) k/uL INR (<1.2) APTT (22.0-30.0) sec ABG pH (7.35-7.45) ABG pCO2 (35-45) mmHg ABG pO2 (83-108) mmHg ABG HCO3 (21-25) mmol/L ABG Total CO2 (19-24) mmol/L ABG O2 Saturation (94-97) % ABG Lactic Acid (0.5-1.6) mmol/L Sodium (137-145) mmol/L Potassium (3.5-5.1) mmol/L Chloride (98-107) mmol/L Carbon Dioxide (22-30) mmol/L BUN (7-17) mg/dL Creatinine (0.52-1.04) mg/dL Glucose (74-99) mg/dL POC Glucose (mg/dL) 112 H 106 H 71 L (75-99) mg/dL Plasma Lactic Acid Art (0.7-2.0) mmol/L Calcium (8.4-10.2) mg/dL Ionized Calcium Joseph (4.5-5.3) mg/dL Phosphorus (2.5-4.5) mg/dL Magnesium (1.6-2.3) mg/dL AST (14-36) U/L ALT (9-52) U/L Total Creatine Kinase (30-135) U/L CK-MB (CK-2) (0.0-2.4) ng/mL Troponin I (0.000-0.034) ng/mL Total Protein (6.3-8.2) g/dL Albumin (3.5-5.0) g/dL Urine Appearance (Clear) Urine Protein (Negative) Urine Glucose (UA) (Negative) Urine Ketones (Negative) Urine Blood (Negative) Ur Leukocyte Esterase (Negative) Urine WBC (0-5) /hpf Urine WBC Clumps (None) /hpf Urine Bacteria (None) /hpf Hyaline Casts (0-2) /lpf Urine Mucus (None) /hpf Urine Yeast (Budding) (None) /hpf Urine Opiates Screen (NotDetected) U Tricyclic Antidepress (NotDetected) U Benzodiazepines Scrn (NotDetected) 03/17/17 03/17/17 03/17/17 Range/Units 17:08 18:12 18:17 WBC 18.3 H (3.8-10.6) k/uL RBC 3.57 L (3.80-5.40) m/uL Hgb (11.4-16.0) gm/dL MCV 103.7 H (80.0-100.0) fL Neutrophils # 16.1 H (1.3-7.7) k/uL Monocytes # (0-1.0) k/uL INR (<1.2) APTT (22.0-30.0) sec ABG pH (7.35-7.45) ABG pCO2 (35-45) mmHg ABG pO2 (83-108) mmHg ABG HCO3 (21-25) mmol/L ABG Total CO2 (19-24) mmol/L ABG O2 Saturation (94-97) % ABG Lactic Acid (0.5-1.6) mmol/L Sodium (137-145) mmol/L Potassium (3.5-5.1) mmol/L Chloride (98-107) mmol/L Carbon Dioxide (22-30) mmol/L BUN (7-17) mg/dL Creatinine (0.52-1.04) mg/dL Glucose (74-99) mg/dL POC Glucose (mg/dL) 157 H 67 L (75-99) mg/dL Plasma Lactic Acid Art (0.7-2.0) mmol/L Calcium (8.4-10.2) mg/dL Ionized Calcium Joseph (4.5-5.3) mg/dL Phosphorus (2.5-4.5) mg/dL Magnesium (1.6-2.3) mg/dL AST (14-36) U/L ALT (9-52) U/L Total Creatine Kinase (30-135) U/L CK-MB (CK-2) (0.0-2.4) ng/mL Troponin I (0.000-0.034) ng/mL Total Protein (6.3-8.2) g/dL Albumin (3.5-5.0) g/dL Urine Appearance (Clear) Urine Protein (Negative) Urine Glucose (UA) (Negative) Urine Ketones (Negative) Urine Blood (Negative) Ur Leukocyte Esterase (Negative) Urine WBC (0-5) /hpf Urine WBC Clumps (None) /hpf Urine Bacteria (None) /hpf Hyaline Casts (0-2) /lpf Urine Mucus (None) /hpf Urine Yeast (Budding) (None) /hpf Urine Opiates Screen (NotDetected) U Tricyclic Antidepress (NotDetected) U Benzodiazepines Scrn (NotDetected) 03/17/17 03/17/17 03/17/17 Range/Units 18:17 18:45 18:46 WBC (3.8-10.6) k/uL RBC (3.80-5.40) m/uL Hgb (11.4-16.0) gm/dL MCV (80.0-100.0) fL Neutrophils # (1.3-7.7) k/uL Monocytes # (0-1.0) k/uL INR (<1.2) APTT (22.0-30.0) sec ABG pH (7.35-7.45) ABG pCO2 (35-45) mmHg ABG pO2 (83-108) mmHg ABG HCO3 (21-25) mmol/L ABG Total CO2 (19-24) mmol/L ABG O2 Saturation (94-97) % ABG Lactic Acid (0.5-1.6) mmol/L Sodium (137-145) mmol/L Potassium 3.0 L* (3.5-5.1) mmol/L Chloride 112 H (98-107) mmol/L Carbon Dioxide 13 L (22-30) mmol/L BUN 35 H (7-17) mg/dL Creatinine 1.90 H (0.52-1.04) mg/dL Glucose 68 L (74-99) mg/dL POC Glucose (mg/dL) 64 L (75-99) mg/dL Plasma Lactic Acid Art (0.7-2.0) mmol/L Calcium 11.1 H (8.4-10.2) mg/dL Ionized Calcium Joseph (4.5-5.3) mg/dL Phosphorus (2.5-4.5) mg/dL Magnesium (1.6-2.3) mg/dL AST 520 H (14-36) U/L ALT 165 H (9-52) U/L Total Creatine Kinase (30-135) U/L CK-MB (CK-2) (0.0-2.4) ng/mL Troponin I (0.000-0.034) ng/mL Total Protein 5.2 L (6.3-8.2) g/dL Albumin 2.7 L (3.5-5.0) g/dL Urine Appearance Turbid H (Clear) Urine Protein 2+ H (Negative) Urine Glucose (UA) 1+ H (Negative) Urine Ketones 1+ H (Negative) Urine Blood Large H (Negative) Ur Leukocyte Esterase Small H (Negative) Urine WBC 9 H (0-5) /hpf Urine WBC Clumps Occasional H (None) /hpf Urine Bacteria Few H (None) /hpf Hyaline Casts 8 H (0-2) /lpf Urine Mucus Rare H (None) /hpf Urine Yeast (Budding) Moderate H (None) /hpf Urine Opiates Screen (NotDetected) U Tricyclic Antidepress (NotDetected) U Benzodiazepines Scrn (NotDetected) 03/17/17 03/17/17 03/17/17 Range/Units 19:11 19:34 20:16 WBC (3.8-10.6) k/uL RBC (3.80-5.40) m/uL Hgb (11.4-16.0) gm/dL MCV (80.0-100.0) fL Neutrophils # (1.3-7.7) k/uL Monocytes # (0-1.0) k/uL INR (<1.2) APTT (22.0-30.0) sec ABG pH (7.35-7.45) ABG pCO2 (35-45) mmHg ABG pO2 (83-108) mmHg ABG HCO3 (21-25) mmol/L ABG Total CO2 (19-24) mmol/L ABG O2 Saturation (94-97) % ABG Lactic Acid (0.5-1.6) mmol/L Sodium (137-145) mmol/L Potassium (3.5-5.1) mmol/L Chloride (98-107) mmol/L Carbon Dioxide (22-30) mmol/L BUN (7-17) mg/dL Creatinine (0.52-1.04) mg/dL Glucose (74-99) mg/dL POC Glucose (mg/dL) 127 H 143 H 102 H (75-99) mg/dL Plasma Lactic Acid Art (0.7-2.0) mmol/L Calcium (8.4-10.2) mg/dL Ionized Calcium Joseph (4.5-5.3) mg/dL Phosphorus (2.5-4.5) mg/dL Magnesium (1.6-2.3) mg/dL AST (14-36) U/L ALT (9-52) U/L Total Creatine Kinase (30-135) U/L CK-MB (CK-2) (0.0-2.4) ng/mL Troponin I (0.000-0.034) ng/mL Total Protein (6.3-8.2) g/dL Albumin (3.5-5.0) g/dL Urine Appearance (Clear) Urine Protein (Negative) Urine Glucose (UA) (Negative) Urine Ketones (Negative) Urine Blood (Negative) Ur Leukocyte Esterase (Negative) Urine WBC (0-5) /hpf Urine WBC Clumps (None) /hpf Urine Bacteria (None) /hpf Hyaline Casts (0-2) /lpf Urine Mucus (None) /hpf Urine Yeast (Budding) (None) /hpf Urine Opiates Screen (NotDetected) U Tricyclic Antidepress (NotDetected) U Benzodiazepines Scrn (NotDetected) 03/17/17 03/17/17 03/17/17 Range/Units 21:04 21:31 22:00 WBC (3.8-10.6) k/uL RBC (3.80-5.40) m/uL Hgb (11.4-16.0) gm/dL MCV (80.0-100.0) fL Neutrophils # (1.3-7.7) k/uL Monocytes # (0-1.0) k/uL INR (<1.2) APTT (22.0-30.0) sec ABG pH (7.35-7.45) ABG pCO2 (35-45) mmHg ABG pO2 (83-108) mmHg ABG HCO3 (21-25) mmol/L ABG Total CO2 (19-24) mmol/L ABG O2 Saturation (94-97) % ABG Lactic Acid (0.5-1.6) mmol/L Sodium (137-145) mmol/L Potassium 2.9 L* (3.5-5.1) mmol/L Chloride (98-107) mmol/L Carbon Dioxide (22-30) mmol/L BUN (7-17) mg/dL Creatinine (0.52-1.04) mg/dL Glucose (74-99) mg/dL POC Glucose (mg/dL) 169 H 151 H (75-99) mg/dL Plasma Lactic Acid Art (0.7-2.0) mmol/L Calcium (8.4-10.2) mg/dL Ionized Calcium Joseph (4.5-5.3) mg/dL Phosphorus (2.5-4.5) mg/dL Magnesium 1.3 L (1.6-2.3) mg/dL AST (14-36) U/L ALT (9-52) U/L Total Creatine Kinase (30-135) U/L CK-MB (CK-2) (0.0-2.4) ng/mL Troponin I (0.000-0.034) ng/mL Total Protein (6.3-8.2) g/dL Albumin (3.5-5.0) g/dL Urine Appearance (Clear) Urine Protein (Negative) Urine Glucose (UA) (Negative) Urine Ketones (Negative) Urine Blood (Negative) Ur Leukocyte Esterase (Negative) Urine WBC (0-5) /hpf Urine WBC Clumps (None) /hpf Urine Bacteria (None) /hpf Hyaline Casts (0-2) /lpf Urine Mucus (None) /hpf Urine Yeast (Budding) (None) /hpf Urine Opiates Screen (NotDetected) U Tricyclic Antidepress (NotDetected) U Benzodiazepines Scrn (NotDetected) 03/17/17 03/17/17 03/17/17 Range/Units 22:04 22:30 23:27 WBC (3.8-10.6) k/uL RBC (3.80-5.40) m/uL Hgb (11.4-16.0) gm/dL MCV (80.0-100.0) fL Neutrophils # (1.3-7.7) k/uL Monocytes # (0-1.0) k/uL INR (<1.2) APTT (22.0-30.0) sec ABG pH (7.35-7.45) ABG pCO2 (35-45) mmHg ABG pO2 (83-108) mmHg ABG HCO3 (21-25) mmol/L ABG Total CO2 (19-24) mmol/L ABG O2 Saturation (94-97) % ABG Lactic Acid (0.5-1.6) mmol/L Sodium (137-145) mmol/L Potassium (3.5-5.1) mmol/L Chloride (98-107) mmol/L Carbon Dioxide (22-30) mmol/L BUN (7-17) mg/dL Creatinine (0.52-1.04) mg/dL Glucose (74-99) mg/dL POC Glucose (mg/dL) 130 H 113 H 206 H (75-99) mg/dL Plasma Lactic Acid Art (0.7-2.0) mmol/L Calcium (8.4-10.2) mg/dL Ionized Calcium Joseph (4.5-5.3) mg/dL Phosphorus (2.5-4.5) mg/dL Magnesium (1.6-2.3) mg/dL AST (14-36) U/L ALT (9-52) U/L Total Creatine Kinase (30-135) U/L CK-MB (CK-2) (0.0-2.4) ng/mL Troponin I (0.000-0.034) ng/mL Total Protein (6.3-8.2) g/dL Albumin (3.5-5.0) g/dL Urine Appearance (Clear) Urine Protein (Negative) Urine Glucose (UA) (Negative) Urine Ketones (Negative) Urine Blood (Negative) Ur Leukocyte Esterase (Negative) Urine WBC (0-5) /hpf Urine WBC Clumps (None) /hpf Urine Bacteria (None) /hpf Hyaline Casts (0-2) /lpf Urine Mucus (None) /hpf Urine Yeast (Budding) (None) /hpf Urine Opiates Screen (NotDetected) U Tricyclic Antidepress (NotDetected) U Benzodiazepines Scrn (NotDetected) 03/18/17 03/18/17 03/18/17 Range/Units 00:03 00:30 00:56 WBC (3.8-10.6) k/uL RBC (3.80-5.40) m/uL Hgb (11.4-16.0) gm/dL MCV (80.0-100.0) fL Neutrophils # (1.3-7.7) k/uL Monocytes # (0-1.0) k/uL INR (<1.2) APTT (22.0-30.0) sec ABG pH (7.35-7.45) ABG pCO2 (35-45) mmHg ABG pO2 (83-108) mmHg ABG HCO3 (21-25) mmol/L ABG Total CO2 (19-24) mmol/L ABG O2 Saturation (94-97) % ABG Lactic Acid (0.5-1.6) mmol/L Sodium (137-145) mmol/L Potassium (3.5-5.1) mmol/L Chloride (98-107) mmol/L Carbon Dioxide (22-30) mmol/L BUN (7-17) mg/dL Creatinine (0.52-1.04) mg/dL Glucose (74-99) mg/dL POC Glucose (mg/dL) 140 H 144 H 149 H (75-99) mg/dL Plasma Lactic Acid Art (0.7-2.0) mmol/L Calcium (8.4-10.2) mg/dL Ionized Calcium Joseph (4.5-5.3) mg/dL Phosphorus (2.5-4.5) mg/dL Magnesium (1.6-2.3) mg/dL AST (14-36) U/L ALT (9-52) U/L Total Creatine Kinase (30-135) U/L CK-MB (CK-2) (0.0-2.4) ng/mL Troponin I (0.000-0.034) ng/mL Total Protein (6.3-8.2) g/dL Albumin (3.5-5.0) g/dL Urine Appearance (Clear) Urine Protein (Negative) Urine Glucose (UA) (Negative) Urine Ketones (Negative) Urine Blood (Negative) Ur Leukocyte Esterase (Negative) Urine WBC (0-5) /hpf Urine WBC Clumps (None) /hpf Urine Bacteria (None) /hpf Hyaline Casts (0-2) /lpf Urine Mucus (None) /hpf Urine Yeast (Budding) (None) /hpf Urine Opiates Screen (NotDetected) U Tricyclic Antidepress (NotDetected) U Benzodiazepines Scrn (NotDetected) 03/18/17 03/18/17 03/18/17 Range/Units 01:30 02:10 02:30 WBC (3.8-10.6) k/uL RBC (3.80-5.40) m/uL Hgb (11.4-16.0) gm/dL MCV (80.0-100.0) fL Neutrophils # (1.3-7.7) k/uL Monocytes # (0-1.0) k/uL INR (<1.2) APTT (22.0-30.0) sec ABG pH (7.35-7.45) ABG pCO2 (35-45) mmHg ABG pO2 (83-108) mmHg ABG HCO3 (21-25) mmol/L ABG Total CO2 (19-24) mmol/L ABG O2 Saturation (94-97) % ABG Lactic Acid (0.5-1.6) mmol/L Sodium (137-145) mmol/L Potassium (3.5-5.1) mmol/L Chloride (98-107) mmol/L Carbon Dioxide (22-30) mmol/L BUN (7-17) mg/dL Creatinine (0.52-1.04) mg/dL Glucose (74-99) mg/dL POC Glucose (mg/dL) 157 H 158 H 173 H (75-99) mg/dL Plasma Lactic Acid Art (0.7-2.0) mmol/L Calcium (8.4-10.2) mg/dL Ionized Calcium Joseph (4.5-5.3) mg/dL Phosphorus (2.5-4.5) mg/dL Magnesium (1.6-2.3) mg/dL AST (14-36) U/L ALT (9-52) U/L Total Creatine Kinase (30-135) U/L CK-MB (CK-2) (0.0-2.4) ng/mL Troponin I (0.000-0.034) ng/mL Total Protein (6.3-8.2) g/dL Albumin (3.5-5.0) g/dL Urine Appearance (Clear) Urine Protein (Negative) Urine Glucose (UA) (Negative) Urine Ketones (Negative) Urine Blood (Negative) Ur Leukocyte Esterase (Negative) Urine WBC (0-5) /hpf Urine WBC Clumps (None) /hpf Urine Bacteria (None) /hpf Hyaline Casts (0-2) /lpf Urine Mucus (None) /hpf Urine Yeast (Budding) (None) /hpf Urine Opiates Screen (NotDetected) U Tricyclic Antidepress (NotDetected) U Benzodiazepines Scrn (NotDetected) 03/18/17 03/18/17 03/18/17 Range/Units 03:07 03:30 04:00 WBC 22.8 H (3.8-10.6) k/uL RBC 3.49 L (3.80-5.40) m/uL Hgb 11.2 L (11.4-16.0) gm/dL MCV 100.4 H (80.0-100.0) fL Neutrophils # 19.8 H (1.3-7.7) k/uL Monocytes # 1.2 H (0-1.0) k/uL INR (<1.2) APTT (22.0-30.0) sec ABG pH (7.35-7.45) ABG pCO2 (35-45) mmHg ABG pO2 (83-108) mmHg ABG HCO3 (21-25) mmol/L ABG Total CO2 (19-24) mmol/L ABG O2 Saturation (94-97) % ABG Lactic Acid (0.5-1.6) mmol/L Sodium (137-145) mmol/L Potassium (3.5-5.1) mmol/L Chloride (98-107) mmol/L Carbon Dioxide (22-30) mmol/L BUN (7-17) mg/dL Creatinine (0.52-1.04) mg/dL Glucose (74-99) mg/dL POC Glucose (mg/dL) 178 H 149 H (75-99) mg/dL Plasma Lactic Acid Art (0.7-2.0) mmol/L Calcium (8.4-10.2) mg/dL Ionized Calcium Joseph (4.5-5.3) mg/dL Phosphorus (2.5-4.5) mg/dL Magnesium (1.6-2.3) mg/dL AST (14-36) U/L ALT (9-52) U/L Total Creatine Kinase (30-135) U/L CK-MB (CK-2) (0.0-2.4) ng/mL Troponin I (0.000-0.034) ng/mL Total Protein (6.3-8.2) g/dL Albumin (3.5-5.0) g/dL Urine Appearance (Clear) Urine Protein (Negative) Urine Glucose (UA) (Negative) Urine Ketones (Negative) Urine Blood (Negative) Ur Leukocyte Esterase (Negative) Urine WBC (0-5) /hpf Urine WBC Clumps (None) /hpf Urine Bacteria (None) /hpf Hyaline Casts (0-2) /lpf Urine Mucus (None) /hpf Urine Yeast (Budding) (None) /hpf Urine Opiates Screen (NotDetected) U Tricyclic Antidepress (NotDetected) U Benzodiazepines Scrn (NotDetected) 03/18/17 03/18/17 03/18/17 Range/Units 04:00 04:00 04:00 WBC (3.8-10.6) k/uL RBC (3.80-5.40) m/uL Hgb (11.4-16.0) gm/dL MCV (80.0-100.0) fL Neutrophils # (1.3-7.7) k/uL Monocytes # (0-1.0) k/uL INR (<1.2) APTT 21.2 L (22.0-30.0) sec ABG pH (7.35-7.45) ABG pCO2 (35-45) mmHg ABG pO2 (83-108) mmHg ABG HCO3 (21-25) mmol/L ABG Total CO2 (19-24) mmol/L ABG O2 Saturation (94-97) % ABG Lactic Acid 3.1 H* (0.5-1.6) mmol/L Sodium 128 L (137-145) mmol/L Potassium 3.3 L (3.5-5.1) mmol/L Chloride (98-107) mmol/L Carbon Dioxide 16 L (22-30) mmol/L BUN 37 H (7-17) mg/dL Creatinine 2.29 H (0.52-1.04) mg/dL Glucose 146 H (74-99) mg/dL POC Glucose (mg/dL) (75-99) mg/dL Plasma Lactic Acid Art (0.7-2.0) mmol/L Calcium (8.4-10.2) mg/dL Ionized Calcium Joseph 6.0 H* (4.5-5.3) mg/dL Phosphorus 4.9 H (2.5-4.5) mg/dL Magnesium 2.4 H (1.6-2.3) mg/dL AST 388 H (14-36) U/L ALT 152 H (9-52) U/L Total Creatine Kinase (30-135) U/L CK-MB (CK-2) (0.0-2.4) ng/mL Troponin I (0.000-0.034) ng/mL Total Protein 4.9 L (6.3-8.2) g/dL Albumin 2.3 L (3.5-5.0) g/dL Urine Appearance (Clear) Urine Protein (Negative) Urine Glucose (UA) (Negative) Urine Ketones (Negative) Urine Blood (Negative) Ur Leukocyte Esterase (Negative) Urine WBC (0-5) /hpf Urine WBC Clumps (None) /hpf Urine Bacteria (None) /hpf Hyaline Casts (0-2) /lpf Urine Mucus (None) /hpf Urine Yeast (Budding) (None) /hpf Urine Opiates Screen (NotDetected) U Tricyclic Antidepress (NotDetected) U Benzodiazepines Scrn (NotDetected) 03/18/17 03/18/17 03/18/17 Range/Units 04:01 04:29 04:37 WBC (3.8-10.6) k/uL RBC (3.80-5.40) m/uL Hgb (11.4-16.0) gm/dL MCV (80.0-100.0) fL Neutrophils # (1.3-7.7) k/uL Monocytes # (0-1.0) k/uL INR (<1.2) APTT (22.0-30.0) sec ABG pH 7.23 L (7.35-7.45) ABG pCO2 (35-45) mmHg ABG pO2 80 L (83-108) mmHg ABG HCO3 16 L (21-25) mmol/L ABG Total CO2 18 L (19-24) mmol/L ABG O2 Saturation 93.0 L (94-97) % ABG Lactic Acid (0.5-1.6) mmol/L Sodium (137-145) mmol/L Potassium (3.5-5.1) mmol/L Chloride (98-107) mmol/L Carbon Dioxide (22-30) mmol/L BUN (7-17) mg/dL Creatinine (0.52-1.04) mg/dL Glucose (74-99) mg/dL POC Glucose (mg/dL) 144 H 123 H (75-99) mg/dL Plasma Lactic Acid Art (0.7-2.0) mmol/L Calcium (8.4-10.2) mg/dL Ionized Calcium Joseph (4.5-5.3) mg/dL Phosphorus (2.5-4.5) mg/dL Magnesium (1.6-2.3) mg/dL AST (14-36) U/L ALT (9-52) U/L Total Creatine Kinase (30-135) U/L CK-MB (CK-2) (0.0-2.4) ng/mL Troponin I (0.000-0.034) ng/mL Total Protein (6.3-8.2) g/dL Albumin (3.5-5.0) g/dL Urine Appearance (Clear) Urine Protein (Negative) Urine Glucose (UA) (Negative) Urine Ketones (Negative) Urine Blood (Negative) Ur Leukocyte Esterase (Negative) Urine WBC (0-5) /hpf Urine WBC Clumps (None) /hpf Urine Bacteria (None) /hpf Hyaline Casts (0-2) /lpf Urine Mucus (None) /hpf Urine Yeast (Budding) (None) /hpf Urine Opiates Screen (NotDetected) U Tricyclic Antidepress (NotDetected) U Benzodiazepines Scrn (NotDetected) 03/18/17 03/18/17 03/18/17 Range/Units 05:01 05:33 06:32 WBC (3.8-10.6) k/uL RBC (3.80-5.40) m/uL Hgb (11.4-16.0) gm/dL MCV (80.0-100.0) fL Neutrophils # (1.3-7.7) k/uL Monocytes # (0-1.0) k/uL INR (<1.2) APTT (22.0-30.0) sec ABG pH (7.35-7.45) ABG pCO2 (35-45) mmHg ABG pO2 (83-108) mmHg ABG HCO3 (21-25) mmol/L ABG Total CO2 (19-24) mmol/L ABG O2 Saturation (94-97) % ABG Lactic Acid (0.5-1.6) mmol/L Sodium (137-145) mmol/L Potassium (3.5-5.1) mmol/L Chloride (98-107) mmol/L Carbon Dioxide (22-30) mmol/L BUN (7-17) mg/dL Creatinine (0.52-1.04) mg/dL Glucose (74-99) mg/dL POC Glucose (mg/dL) 126 H 117 H 194 H (75-99) mg/dL Plasma Lactic Acid Art (0.7-2.0) mmol/L Calcium (8.4-10.2) mg/dL Ionized Calcium Joseph (4.5-5.3) mg/dL Phosphorus (2.5-4.5) mg/dL Magnesium (1.6-2.3) mg/dL AST (14-36) U/L ALT (9-52) U/L Total Creatine Kinase (30-135) U/L CK-MB (CK-2) (0.0-2.4) ng/mL Troponin I (0.000-0.034) ng/mL Total Protein (6.3-8.2) g/dL Albumin (3.5-5.0) g/dL Urine Appearance (Clear) Urine Protein (Negative) Urine Glucose (UA) (Negative) Urine Ketones (Negative) Urine Blood (Negative) Ur Leukocyte Esterase (Negative) Urine WBC (0-5) /hpf Urine WBC Clumps (None) /hpf Urine Bacteria (None) /hpf Hyaline Casts (0-2) /lpf Urine Mucus (None) /hpf Urine Yeast (Budding) (None) /hpf Urine Opiates Screen (NotDetected) U Tricyclic Antidepress (NotDetected) U Benzodiazepines Scrn (NotDetected) 03/18/17 03/18/17 03/18/17 Range/Units 07:05 07:35 08:02 WBC (3.8-10.6) k/uL RBC (3.80-5.40) m/uL Hgb (11.4-16.0) gm/dL MCV (80.0-100.0) fL Neutrophils # (1.3-7.7) k/uL Monocytes # (0-1.0) k/uL INR (<1.2) APTT (22.0-30.0) sec ABG pH (7.35-7.45) ABG pCO2 (35-45) mmHg ABG pO2 (83-108) mmHg ABG HCO3 (21-25) mmol/L ABG Total CO2 (19-24) mmol/L ABG O2 Saturation (94-97) % ABG Lactic Acid (0.5-1.6) mmol/L Sodium (137-145) mmol/L Potassium (3.5-5.1) mmol/L Chloride (98-107) mmol/L Carbon Dioxide (22-30) mmol/L BUN (7-17) mg/dL Creatinine (0.52-1.04) mg/dL Glucose (74-99) mg/dL POC Glucose (mg/dL) 147 H 147 H 131 H (75-99) mg/dL Plasma Lactic Acid Art (0.7-2.0) mmol/L Calcium (8.4-10.2) mg/dL Ionized Calcium Joseph (4.5-5.3) mg/dL Phosphorus (2.5-4.5) mg/dL Magnesium (1.6-2.3) mg/dL AST (14-36) U/L ALT (9-52) U/L Total Creatine Kinase (30-135) U/L CK-MB (CK-2) (0.0-2.4) ng/mL Troponin I (0.000-0.034) ng/mL Total Protein (6.3-8.2) g/dL Albumin (3.5-5.0) g/dL Urine Appearance (Clear) Urine Protein (Negative) Urine Glucose (UA) (Negative) Urine Ketones (Negative) Urine Blood (Negative) Ur Leukocyte Esterase (Negative) Urine WBC (0-5) /hpf Urine WBC Clumps (None) /hpf Urine Bacteria (None) /hpf Hyaline Casts (0-2) /lpf Urine Mucus (None) /hpf Urine Yeast (Budding) (None) /hpf Urine Opiates Screen (NotDetected) U Tricyclic Antidepress (NotDetected) U Benzodiazepines Scrn (NotDetected) 03/18/17 03/18/17 Range/Units 08:35 09:08 WBC (3.8-10.6) k/uL RBC (3.80-5.40) m/uL Hgb (11.4-16.0) gm/dL MCV (80.0-100.0) fL Neutrophils # (1.3-7.7) k/uL Monocytes # (0-1.0) k/uL INR (<1.2) APTT (22.0-30.0) sec ABG pH (7.35-7.45) ABG pCO2 (35-45) mmHg ABG pO2 (83-108) mmHg ABG HCO3 (21-25) mmol/L ABG Total CO2 (19-24) mmol/L ABG O2 Saturation (94-97) % ABG Lactic Acid (0.5-1.6) mmol/L Sodium (137-145) mmol/L Potassium (3.5-5.1) mmol/L Chloride (98-107) mmol/L Carbon Dioxide (22-30) mmol/L BUN (7-17) mg/dL Creatinine (0.52-1.04) mg/dL Glucose (74-99) mg/dL POC Glucose (mg/dL) 120 H 112 H (75-99) mg/dL Plasma Lactic Acid Art (0.7-2.0) mmol/L Calcium (8.4-10.2) mg/dL Ionized Calcium Joseph (4.5-5.3) mg/dL Phosphorus (2.5-4.5) mg/dL Magnesium (1.6-2.3) mg/dL AST (14-36) U/L ALT (9-52) U/L Total Creatine Kinase (30-135) U/L CK-MB (CK-2) (0.0-2.4) ng/mL Troponin I (0.000-0.034) ng/mL Total Protein (6.3-8.2) g/dL Albumin (3.5-5.0) g/dL Urine Appearance (Clear) Urine Protein (Negative) Urine Glucose (UA) (Negative) Urine Ketones (Negative) Urine Blood (Negative) Ur Leukocyte Esterase (Negative) Urine WBC (0-5) /hpf Urine WBC Clumps (None) /hpf Urine Bacteria (None) /hpf Hyaline Casts (0-2) /lpf Urine Mucus (None) /hpf Urine Yeast (Budding) (None) /hpf Urine Opiates Screen (NotDetected) U Tricyclic Antidepress (NotDetected) U Benzodiazepines Scrn (NotDetected) Microbiology - Last 24 Hours (Table) 03/17/17 16:56 Gram Stain - Preliminary Sputum Sputum Culture - Preliminary Assessment and Plan Plan: Pression: #1 Multidrug overdose of Remeron, Restoril and Norvasc. #2 Drug screen positive for opiates, tricyclic antidepressants, benzodiazepines. #3 Acute respiratory failure secondary to above requiring intubation mechanical ventilatory support. #4. Profound circulatory shock secondary to calcium channel amadou toxicity from overdose #5. Non-anion gap metabolic acidosis due to profound hypotension, acute renal failure from overdose of calcium channel blockers, currently being treated with high-dose insulin infusion, vasopressor support with levo fed currently at 47 mics per minute, 20% dextrose infusion. #6. Acute kidney injury due to the above, worsening today creatinine is 2.29, up from 1.9 on admission. #7. Elevated liver enzymes and troponin secondary to hypoperfusion injury due to the above #8 Leukocytosis, of unclear etiology, sputum culture is pending, patient has been afebrile. Cultures pending, chest x-ray from 03/18/[address] has been reviewed [address] Dr[address] Vasquez and shows no acute cardiopulmonary process #9. History of the previous suicide attempt with horse tranquilizers, and interrupted suicide attempt with hanging #10 History of anxiety/depression with recent admission for depressive disorder and opiate withdrawal. #11 Hypertension. #12. Status DO NOT RESUSCITATE Plan: Patient remains on mechanical ventilator, continues to be persistently acidotic from hypoperfusion. Continues to require large amounts of vasopressor support with norepinephrine at 47 mics per minute, remains persistently hypotensive with systolic in the 60s. She is oliguric with urine output less than 10 mL per hour. She continues on high-dose insulin infusion, 20% dextrose and vasopressor support yesterday we had given her calcium replacements. We will try initiating vasopressin at physiologic dose at 0.0 units per hour, in an attempt to maintain perfusion. We will keep the same vent settings. Discussion was held with the patient is family, who had made a decision to have a CODE STATUS DO NOT RESUSCITATE. Patient has an extremely poor prognosis, continue supportive care. Continue high-dose insulin infusion, vasopressor support, mechanical ventilation. Poison control has been notified and is following the case. I performed a history & physical examination of the patient and discussed their management with my nurse practitioner, Ambar Serrano. I reviewed the nurse practitioner's note and agree with the documented findings and plan of care. Lung sounds are clear. The findings and the impression was discussed with the patient. I attest to the documentation by the nurse practitioner. Critical care time 42 minutes. Time with Patient: Greater than 30
[2017-03-18 10:03] VITALS: BP 73/50; PULSE 85; RESP 37
[2017-03-18] MEDS ORDERED: MORPHINE SULFATE 4 MG/ML SYRINGE ONE (10:31)
[2017-03-18] MEDS ORDERED: MORPHINE SULFATE 4 MG/ML SYRINGE IV PRN (10:39)
[2017-03-18] MEDS ORDERED: MORPHINE SULFATE (100 MG/2 ML) 100 MG in SODIUM CHLORIDE 0.9% 100 ML IV SCH (10:45)
[2017-03-18] MEDS ORDERED: ONDANSETRON 4 MG/2 ML VIAL ONE (12:33)
--- NOTE | 2017-04-07 12:56 | P.DS ---
Providers Date of admission: 03/17/17 13:35 Attending physician: Erik Sommer Consults: 03/17/17 13:35 Consult Physician Urgent Consulting Provider: Carlos Manuel Vasquez Reason/Comments: Critical care management Do you want consulting provider notified?: Yes Primary care physician: Erik Sommer - Discharge Diagnosis(es) (1) Benzodiazepine overdose Status: Acute (2) Calcium channel amadou overdose Status: Acute (3) Renal insufficiency Status: Acute (4) Rhabdomyolysis Status: Acute (5) Unresponsive Status: Acute (6) Hypertension Status: Acute (7) Major depressive disorder, severe Status: Acute (8) Opiate withdrawal Status: Acute Hospital Course: This is a discharge/ summary on a 56-year-old white female essentially admitted for respiratory failure secondary to medication overuse and abuse. She has struggled in the past with opioid dependence. She is also struggle with depression and anxiety. The patient was admitted and had significant pneumonia requiring treatment. She is on the ventilator and unfortunately, did not recover. Multiple substances were found in her drug screen and she . Plan - Discharge Summary Discharge Rx Participant: No New Discharge Prescriptions: No Action amLODIPine [Norvasc] 10 mg PO HS Aspirin EC [Ecotrin Low Dose] 81 mg PO DAILY Mirtazapine [Remeron] 15 mg PO HS #14 tab Temazepam 30 mg PO HS #14 Discharge Medication List Aspirin EC [Ecotrin Low Dose] 81 mg PO DAILY 01/31/17 [History] amLODIPine [Norvasc] 10 mg PO HS 01/31/17 [History] Mirtazapine [Remeron] 15 mg PO HS #14 tab 02/04/17 [Rx] Temazepam 30 mg PO HS #14 02/04/17 [Rx] Follow up Appointment(s)/Referral(s): Erik Sommer MD [Primary Care Provider] - 1-2 days Discharge Disposition: - Preliminary Cause of Preliminary Cause of : Respiratory arrest and benzodiazepine overdose.
== END 2017-03-18 13:50 | disposition expired | DRG 917 ==
LOC: EC 09:49 → 6ICU 13:35
PROVIDERS: ADMIT Family Medicine; ATTEND Family Medicine
PROC: 5A1935Z Respiratory Ventilation, Less than 24 Consecutive Hours (ICD-10-PCS; principal; 2017-03-17)
PROC: 0BH17EZ Insertion of Endotracheal Airway into Trachea, Via Natural or Artificial Opening (ICD-10-PCS; 2017-03-17)
PROC: 06HM33Z Insertion of Infusion Device into Right Femoral Vein, Percutaneous Approach (ICD-10-PCS; 2017-03-17)
DX: T42.4X2A Poisoning by benzodiazepines, intentional self-harm, initial encounter (principal); J96.00 Acute respiratory failure, unspecified whether with hypoxia or hypercapnia; J18.9 Pneumonia, unspecified organism; F32.2 Major depressive disorder, single episode, severe without psychotic features; N17.9 Acute kidney failure, unspecified; E87.2 Acidosis; F11.23 Opioid dependence with withdrawal; M62.82 Rhabdomyolysis; T46.1X2A Poisoning by calcium-channel blockers, intentional self-harm, initial encounter; I95.2 Hypotension due to drugs; D72.829 Elevated white blood cell count, unspecified; T43.022A Poisoning by tetracyclic antidepressants, intentional self-harm, initial encounter; T46.1X5A Adverse effect of calcium-channel blockers, initial encounter; F17.200 Nicotine dependence, unspecified, uncomplicated; I10 Essential (primary) hypertension; F41.9 Anxiety disorder, unspecified; G43.909 Migraine, unspecified, not intractable, without status migrainosus; M19.90 Unspecified osteoarthritis, unspecified site; R73.9 Hyperglycemia, unspecified; F40.240 Claustrophobia; R74.8 Abnormal levels of other serum enzymes; E87.8 Other disorders of electrolyte and fluid balance, not elsewhere classified; Z79.82 Long term (current) use of aspirin; Z79.899 Other long term (current) drug therapy; Z66 Do not resuscitate; Z91.5 Personal history of self-harm; Z82.49 Family history of ischemic heart disease and other diseases of the circulatory system; Y92.009 Unspecified place in unspecified non-institutional (private) residence as the place of occurrence of the external cause
CPT/HCPCS: 31500; 36415; 36556; 36600; 51702; 70450; 71010; 80053; 80306; 80320; 81001; 81025; 82330; 82550; 82553; 82805; 83036; 83520; 83605; 83735; 84100; 84132; 84484; 85025; 85610; 85730; 87070; 87077; 87186; 87205; 93005; 94002; 94003; 94640; 96365; 96366; 96375; 99291; 99292